=== PATIENT | male | born 1980 | race Caucasian/White ===

== ENCOUNTER 2017-07-31 17:47 | Emergency (ER) | payer OTHER ==
[2017-07-31 18:13] VITALS: BP 154/94
--- NOTE | 2017-07-31 19:25 | EDM.PDOC ---
ED HPI GENERAL MEDICAL PROBLEM - General Chief Complaint: Lower Extremity Injury/Pain Stated Complaint: HURT KNEE AT WORK Time Seen by Provider: 07/31/17 18:13 Source of Information: Reports: Patient History Limitations: Reports: No Limitations - History of Present Illness INITIAL COMMENTS - FREE TEXT/NARRATIVE: Patient is a 37 y/o male who presents to the E.D. complaining of right anterior knee pain. States today while at work was getting into his work vehicle. Upon doing so slipped causing him to hit the anterior aspect of his knee against the running board/step. States ever since hitting his knee he has had increasing pain with weight bearing and ambulation. States the pain has progressively getting worse with flexing/extending the knee. Has no prior history of injury to the affected knee or surgeries. Denies any sensory/motor deficits distally. Has taken 2 Aleve prior to admission to the ED. Otherwise has no additional complaints. Treatments SMUDGER: Reports: Other (see below) Other Treatments SMUDGER: alleve Right Knee Pain Score (Numeric/FACES): 10 - Related Data Allergies Allergy/AdvReac Type Severity Reaction Status Date / Time latex Allergy Hives Verified 06/21/15 22:55 Jobmpsf-Sev-Jxv Reductase Allergy Hives Verified 06/21/15 22:55 Inhibitor Home Meds: Home Meds Albuterol [Ventolin HFA] 2 puff INH Q4H PRN 06/21/15 [History] ClonazePAM [KlonoPIN] 2 mg PO BEDTIME 06/21/15 [History] Esomeprazole Magnesium [Nexium] 20 mg PO DAILY 06/21/15 [History] [place]-3/DHA/Epa/Fish Oil [Fish Oil] 2,400 mg PO DAILY 06/21/15 [History] [place]'s Wort 300 mg PO DAILY 06/21/15 [History] Past Medical History Respiratory History: Reports: Asthma Musculoskeletal History: Reports: Back Pain, Chronic Psychiatric History: Reports: Anxiety - Past Surgical History Other HEENT Surgeries/Procedures: uvula removed Social & Family History - Tobacco Use Smoking Status *Q: Never Smoker Years of Tobacco use: 20 Packs/Tins Daily: 0.5 - Caffeine Use Caffeine Use: Reports: Energy Drinks - Recreational Drug Use Recreational Drug Use: No Review of Systems - Review of Systems Review Of Systems: ROS reveals no pertinent complaints other than HPI. ED EXAM, GENERAL - Physical Exam Exam: See Below Exam Limited By: No Limitations General Appearance: Alert, WD/WN, No Apparent Distress Ears: Hearing Grossly Normal Nose: Normal Inspection Throat/Mouth: Normal Voice, No Airway Compromise Neck: Normal Inspection, Supple Respiratory/Chest: No Respiratory Distress, No Accessory Muscle Use Cardiovascular: Normal Peripheral Pulses, Regular Rate, Rhythm Peripheral Pulses: 2+: Radial (R) Extremities: Normal Inspection, No Pedal Edema, Normal Capillary Refill, Other ( Tenderness noted to the anterior aspect of the right knee. No ecchymosis, bony antibiotics, swelling present. Limited examination due to increasing pain with manipulation. Decreased active and passive range of motion secondary to anterior knee pain. No sensory deficits distally.) Neurological: Alert, Oriented, Normal Cognition, No Motor/Sensory Deficits Psychiatric: Normal Affect, Normal Mood Skin Exam: Warm, Dry, Intact, Normal Color Course - Vital Signs Last Recorded V/S: Last Vital Signs Temp 98.2 F 07/31/17 18:10 Pulse 96 07/31/17 18:10 Resp 20 07/31/17 18:10 BP 154/94 H 07/31/17 18:10 Pulse Ox 98 07/31/17 18:10 - Orders/Labs/Meds Orders: Active Orders 24 hr Category Date Time Status Knee Min 4V Rt [CR] Stat Exams 07/31/17 18:20 Taken - Re-Assessments/Exams Free Text/Narrative Re-Assessment/Exam: Ordered x-ray of the right knee. This did not reveal any acute bony abnormalities. Testing of the knee is limited 2nd to pain. Ordered helene wrap and crutches to be discharged with patient home. Patient is able to flex and extend his knee with limited range of motion. Instructions provided as documented. Departure - Departure Time of Disposition: 19:25 Disposition: Home, Self-Care 01 Condition: Good Clinical Impression: Contusion of knee, right Qualifiers: Encounter type: initial encounter Qualified Code(s): S80.01XA - Contusion of right knee, initial encounter Strain of knee and leg, right Qualifiers: Encounter type: initial encounter Qualified Code(s): S86.911A - Strain of unspecified muscle(s) and tendon(s) at lower leg level, right leg, initial encounter - Discharge Information Instructions: Crutch Use, Tyux-pc-Nvxy, Cast or Splint Care, Wemb-es-Oymo, Knee Sprain, Feig-ts-Wbjy Referrals: Miranda Redd, [Primary Care Provider] - Forms: ED Department Discharge, ED Return to Work/School Form Additional Instructions: As discussed x-ray of the right knee did not reveal any acute bony abnormalities. Examination was limited secondary to pain. Will have you use a helene wrap with crutches to ambulate. You're to be nonweightbearing for the next 5 to 7 days. Advance weight as tolerated. If not drastically improved see a orthopedic surgeon. Apply ice to the affected knee 4-6 times daily, 20 months in duration, do not apply ice directly on the skin. Elevate when able to reduce swelling and pain. Take Tylenol and ibuprofen in alternating fashion for discomfort. Return to ED for any new or worsening symptoms. - My Orders Last 24 Hours: My Active Orders 07/31/17 18:20 Knee Min 4V Rt [CR] Stat - Assessment/Plan Last 24 Hours: My Active Orders 07/31/17 18:20 Knee Min 4V Rt [CR] Stat
--- NOTE | 2017-08-01 07:16 | CR ---
Right knee: Four views of the right knee were obtained. Comparison: No prior knee exam. Medial and lateral joint spaces are maintained in height. No joint effusion is seen. No fracture or other bony abnormality is identified. Impression: 1. No abnormality is seen on right knee exam. Diagnostic code #1
== END 2017-07-31 19:49 | disposition home or self-care (01) ==
LOC: JD.ED 17:47
DX: S86.911A Strain of unspecified muscle(s) and tendon(s) at lower leg level, right leg, initial encounter (principal); S80.01XA Contusion of right knee, initial encounter; J45.909 Unspecified asthma, uncomplicated; Z91.040 Latex allergy status; Z79.899 Other long term (current) drug therapy; W22.8XXA Striking against or struck by other objects, initial encounter
CPT/HCPCS: 73564-26-RT; 73564-RT; 99283

== ENCOUNTER 2018-06-27 07:08 | Emergency (ER) | payer BC, OTHER ==
[2018-06-27] MEDS ORDERED: EPINEPHrine 1 MG/ML SDV IM ONE (07:45)
[2018-06-27] MEDS ORDERED: Loratadine 10 MG Tab PO ONE (07:45)
[2018-06-27] MEDS ORDERED: predniSONE 20 MG Tab PO ONE (07:45)
--- NOTE | 2018-06-27 08:00 | EDM.PDOC ---
ED HPI GENERAL MEDICAL PROBLEM - General Chief Complaint: Allergic Reaction Stated Complaint: ALLERGIC RX Time Seen by Provider: 06/27/18 07:21 Source of Information: Reports: Patient, RN Notes Reviewed - History of Present Illness INITIAL COMMENTS - FREE TEXT/NARRATIVE: Patient awakened with hives primarily arms, upper legs with swelling around the mouth and also around his eyes. He did eat crab last evening which should be the only thing out of the ordinary. He has had crab and other seafood in the past with no difficulty. He has no shortness of breath cough or wheezing. He states he is allergic to strawberries and various meds. no new Medications at this time. No recent antibiotics. - Related Data Allergies Allergy/AdvReac Type Severity Reaction Status Date / Time latex Allergy Hives Verified 06/21/15 22:55 Mbbieou-Ldv-Sck Reductase Allergy Hives Verified 06/21/15 22:55 Inhibitor strawberry Allergy Hives Verified 06/27/18 07:14 milk chocolate Allergy Diarrhea Uncoded 06/27/18 07:14 Home Meds: Home Meds Albuterol [Ventolin HFA] 2 puff INH Q4H PRN 06/21/15 [History] Esomeprazole Magnesium [Nexium] 40 mg PO DAILY 06/21/15 [History] [place]-3/DHA/Epa/Fish Oil [Fish Oil] 4,200 mg PO DAILY 06/21/15 [History] [place]'s Wort 300 mg PO DAILY 06/21/15 [History] Past Medical History HEENT History: Reports: Impaired Vision Other HEENT History: wears eyeglasses Cardiovascular History: Reports: High Cholesterol Respiratory History: Reports: Asthma, Bronchitis, Recurrent Gastrointestinal History: Reports: GERD Musculoskeletal History: Reports: Back Pain, Chronic, Fracture Neurological History: Reports: Migraines Psychiatric History: Reports: Anxiety Endocrine/Metabolic History: Reports: Other (See Below) Other Endocrine/Metabolic History: states is currently "borderline diabetic right now." Dermatologic History: Reports: Other (See Below) Other Dermatologic History: skin fungus, uses Selsin blue - Infectious Disease History Infectious Disease History: Reports: Chicken Pox - Past Surgical History HEENT Surgical History: Reports: Tonsillectomy Other HEENT Surgeries/Procedures: uvula removed Social & Family History - Tobacco Use Smoking Status *Q: Never Smoker - Caffeine Use Caffeine Use: Reports: None - Recreational Drug Use Recreational Drug Use: Yes Drug Use in Last 12 Months: Yes Recreational Drug Type: Reports: Marijuana/Hashish ED ROS ALLERGIC REACTION - Review of Systems Review Of Systems: See Below Constitutional: Denies: Fever, Chills, Diaphoresis HEENT: Denies: Throat Pain, Throat Swelling Respiratory: Denies: Shortness of Breath, Wheezing, Cough Cardiovascular: Denies: Chest Pain GI/Abdominal: Denies: Abdominal Pain, Nausea, Vomiting Musculoskeletal: Reports: No Symptoms Skin: Reports: Rash (Hives primarily hands arms and legs as well as neck upper chest.), Erythema (Mild erythema around his eyes) Neurological: Reports: No Symptoms ED EXAM GENERAL NO PERIP PULSE - Physical Exam Exam: See Below General Appearance: Alert, No Apparent Distress Eye Exam: Bilateral Eye: PERRL Ears: Normal External Exam Nose: Normal Inspection Throat/Mouth: Normal Inspection, No Airway Compromise Head: Facial Swelling (This for mild swelling around the mouth and also periorbital) Neck: Supple, Full Range of Motion Respiratory/Chest: No Respiratory Distress, Lungs Clear. No: Rhonchi, Wheezing , Stridor Cardiovascular: Regular Rate, Rhythm Back Exam: Normal Inspection Neurological: Alert, Oriented, No Motor/Sensory Deficits Skin Exam: Warm, Dry, Rash (He does have scattered highs primarily of his upper arms but also neck upper chest) Course - Vital Signs Text/Narrative:: 50 mg orally at home prior to arrival. Doing better the swelling has decreased. He still has some hives but they have faded. He does feel up to going home. Discharge instructions as documented. Last Recorded V/S: Last Vital Signs Temp 97.3 F 06/27/18 07:11 Pulse 90 06/27/18 07:11 Resp 18 06/27/18 07:11 BP 144/89 H 06/27/18 07:11 Pulse Ox 93 L 06/27/18 07:11 - Orders/Labs/Meds Meds: Medications Discontinued Medications Generic Name Dose Route Start Last Admin Trade Name Demian PRN Reason Stop Dose Admin Epinephrine HCl 0.3 mg 06/27/18 07:45 06/27/18 07:57 Adrenalin IM 06/27/18 07:46 0.3 mg ONETIME ONE Administration Loratadine 10 mg 06/27/18 07:45 06/27/18 07:57 Claritin PO 06/27/18 07:46 10 mg ONETIME ONE Administration Prednisone 80 mg 06/27/18 07:45 06/27/18 07:56 Prednisone PO 06/27/18 07:46 80 mg ONETIME ONE Administration Departure - Departure Time of Disposition: 08:19 Disposition: Home, Self-Care 01 Condition: Fair Clinical Impression: Allergic reaction Qualifiers: Encounter type: initial encounter Qualified Code(s): T78.40XA - Allergy, unspecified, initial encounter - Discharge Information Referrals: Ami Judge PA-C [Primary Care Provider] - Forms: ED Department Discharge Additional Instructions: You've been given an epinephrine shot, Claritin 10 mg, prednisone 80 mg orally while here in the ED. Continue Claritin 10 mg daily for the next 4 days or until after symptoms completely resolved, you may take Benadryl in addition if needed for severe rash facial swelling or itchiness. Continue prednisone 80 mg for the next 2 mornings and then 40 mg for the subsequent 2 mornings. Follow-up clinic as needed if symptoms not resolving as expected, return to ED as needed if symptoms worsening in any way.
[2018-06-27 08:39] VITALS: BP 139/97
== END 2018-06-27 08:30 | disposition home or self-care (01) ==
LOC: JD.ED 07:08
DX: L50.0 Allergic urticaria (principal); E78.00 Pure hypercholesterolemia, unspecified; F41.9 Anxiety disorder, unspecified; K21.9 Gastro-esophageal reflux disease without esophagitis; Z79.899 Other long term (current) drug therapy; Z91.040 Latex allergy status; Z91.018 Allergy to other foods; Z91.011 Allergy to milk products; Z88.8 Allergy status to other drugs, medicaments and biological substances
CPT/HCPCS: 96372; 99283; A9270; J0171

== ENCOUNTER → 2019-10-09 | Day surgery (SDC) | payer SELFPAY ==
[~2019-10-09] MED LIST: Bacitracin Oint 15 GM Tube ONE; Lactated Ringers 1,000 ML IV SCH; Lidocaine 1% 30 ML SDV ONE; Lidocaine 1% 4 ML ONE; Lidocaine 1%/Sod Bicarbonate in NS 8.4% 1 ML Syringe IDERM PRN; Propofol 200 MG/20 ML SDV ONE; Sodium Chloride 0.9% 10 ML Syringe FLUSH PRN; fentaNYL 100 MCG/2 ML SDV ONE
--- NOTE | 2019-10-09 12:56 | PCM.PREANE ---
Preanesthetic Assessment - Anesthesia/Transfusion/Family Hx Anesthesia History: Prior Anesthesia Without Reaction Transfusion History: No Prior Transfusion(s) Intubation History: Unknown - Review of Systems General: No Symptoms Pulmonary: No Symptoms Cardiovascular: No Symptoms Gastrointestinal: No Symptoms Neurological: No Symptoms Other: Reports: None - Physical Assessment NPO Status Date: 10/08/19 NPO Status Time: 21:00 Vital Signs: 128/70, 81, 16, 98% 97.8 F Height: 1.83 m Weight: 153 kg ASA Class: 2 Mental Status: Alert & Oriented x3 Airway Class: Mallampati = 3 Dentition: Reports: Missing Tooth/Teeth, Caries Thyro-Mental Finger Breadths: 3 (Full gonzalez) Mouth Opening Finger Breadths: 3 ROM/Head Extension: Full Lungs: Clear to Auscultation, Normal Respiratory Effort Cardiovascular: Regular Rate, Regular Rhythm - Allergies Allergies/Adverse Reactions: Allergies Allergy/AdvReac Type Severity Reaction Status Date / Time latex Allergy Hives Verified 06/27/18 08:52 shellfish derived Allergy Anaphylactic Verified 06/08/19 00:54 Shock Nqwlokh-Rah-Cok Reductase Allergy Hives Verified 06/27/18 08:52 Inhibitor strawberry Allergy Hives Verified 06/27/18 08:52 milk chocolate Allergy Diarrhea Uncoded 06/27/18 08:52 - Acknowledgements Anesthesia Type Planned: MAC Pt an Appropriate Candidate for the Planned Anesthesia: Yes Alternatives and Risks of Anesthesia Discussed w Pt/Guardian: Yes Pt/Guardian Understands and Agrees with Anesthesia Plan: Yes PreAnesthesia Questionnaire HEENT History: Reports: Impaired Vision Other HEENT History: wears eyeglasses Cardiovascular History: Reports: High Cholesterol Respiratory History: Reports: Asthma, Bronchitis, Recurrent Gastrointestinal History: Reports: GERD Musculoskeletal History: Reports: Back Pain, Chronic, Fracture Neurological History: Reports: Migraines Psychiatric History: Reports: Anxiety Endocrine/Metabolic History: Reports: Other (See Below) Other Endocrine/Metabolic History: states is currently "borderline diabetic right now." Dermatologic History: Reports: Other (See Below) Other Dermatologic History: skin fungus, uses Selsin blue - Infectious Disease History Infectious Disease History: Reports: Chicken Pox - Past Surgical History HEENT Surgical History: Reports: Tonsillectomy Other HEENT Surgeries/Procedures: uvula removed - HOME MEDS Home Medications: Home Meds Albuterol [Ventolin HFA] 2 puff INH Q4H PRN 06/21/15 [History] Esomeprazole Magnesium [Nexium] 40 mg PO DAILY 06/21/15 [History] [place]-3/DHA/Epa/Fish Oil [Fish Oil] 4,200 mg PO DAILY 06/21/15 [History] metFORMIN HCl [Metformin HCl ER] 500 mg PO QID 06/27/18 [History] Loratadine 10 mg PO DAILY 06/07/19 [History] - CURRENT (IN HOUSE) MEDS Current Meds: Current Medications Lactated Ringer's (Ringers, Lactated) 1,000 mls @ 125 mls/hr IV ASDIRECTED FABIAN Stop: 10/09/19 23:00 Lidocaine/Sodium Bicarbonate (Buffered Lidocaine 1% In Ns 8.4%) 0.25 ml IDERM ONETIME PRN PRN Reason: Prior to IV Start Stop: 10/09/19 18:00 Sodium Chloride (Saline Flush) 10 ml FLUSH ASDIRECTED PRN PRN Reason: Keep Vein Open Stop: 10/09/19 18:00
--- NOTE | 2019-10-09 13:51 | PCM.OPNOTE ---
- General Post-Op/Procedure Note Date of Surgery/Procedure: 10/09/19 Operative Procedure(s): excision of lateral nail palte and matrix of the rt big toe Pre Op Diagnosis: anxiety and ingrown toe nail rt big toe Post-Op Diagnosis: Same Anesthesia Technique: MAC Primary Surgeon: Selwyn Pina EBL in mLs: 5 Complications: None Condition: Good
--- NOTE | 2019-10-09 13:54 | PCM48HPAN ---
Post Anesthesia Note - EVALUATION WITHIN 48HRS OF ANESTHETIC Vital Signs in Normal Range: Yes Patient Participated in Evaluation: Yes Respiratory Function Stable: Yes Airway Patent: Yes Cardiovascular Function Stable: Yes Hydration Status Stable: Yes Pain Control Satisfactory: Yes Nausea and Vomiting Control Satisfactory: Yes Mental Status Recovered: Yes Vital Signs: Last Vital Signs Temp 97.8 F 10/09/19 13:22 Pulse 83 10/09/19 13:22 Resp 18 10/09/19 13:22 BP 128/70 10/09/19 13:22 Pulse Ox 95 10/09/19 13:22 Postprocedure: 133/78, HR 89, SpO2 94% T 98.7 F, RR 18
[2019-10-09 14:36] VITALS: BP 131/80; PULSE 78
--- NOTE | 2019-10-11 09:15 | OR ---
DATE OF OPERATION: 10/09/2019 SURGEON: Selwyn Pina MD PREOPERATIVE DIAGNOSIS: Ingrown toenail, right big toe. POSTOPERATIVE DIAGNOSIS: Ingrown toenail, right big toe. OPERATION PERFORMED: Excision of the lateral nail plate on the right big toe with removal of a portion of matrix. ANESTHESIA: Done under local anesthetic and IV sedation. ESTIMATED BLOOD LOSS: About 3 mL. DESCRIPTION OF PROCEDURE: The patient was taken to the operating room, placed in a supine position, connected to monitoring equipment, and given IV sedation. The right foot and toes were prepped with Betadine and draped off in a sterile fashion. 1% xylocaine without epinephrine was infiltrated in the big toe at the surgical site and the lateral nail plate was then elevated and excised with the scissors. A small incision was made in the paronychia, and this opened up the matrix, and the matrix was then sharply excised. This was aided with the use of a Soumya as a tourniquet and the field was dried. This was then dressed with bacitracin ointment and 4x4s. Tourniquet was removed and pressure was held. Bleeding was scant. It was then redressed with a compressive dressing and elevated. The patient tolerated the procedure, instructed on wound care, and will be followed up in the clinic. RYLEY /[id number]
== END | disposition home or self-care (01) ==
LOC: JD.SDS 12:39
PROVIDERS: ATTEND Surgery
DX: L60.0 Ingrowing nail (principal); E11.9 Type 2 diabetes mellitus without complications; K21.9 Gastro-esophageal reflux disease without esophagitis; E78.5 Hyperlipidemia, unspecified; G43.909 Migraine, unspecified, not intractable, without status migrainosus; F17.290 Nicotine dependence, other tobacco product, uncomplicated; Z79.899 Other long term (current) drug therapy; Z79.84 Long term (current) use of oral hypoglycemic drugs; Z79.1 Long term (current) use of non-steroidal anti-inflammatories (NSAID); Z91.018 Allergy to other foods; Z91.040 Latex allergy status; Z91.013 Allergy to seafood; Z88.8 Allergy status to other drugs, medicaments and biological substances
CPT/HCPCS: 11750; 82962; A9270; J2001; J2704; J3010; J7120

== ENCOUNTER 2020-08-13 01:45 | Emergency (ER) | payer MEDICAID ==
[2020-08-13 02:00] VITALS: BP 121/88; PULSE 106
--- NOTE | 2020-08-13 02:15 | EDM.PDOC ---
ED HPI GENERAL MEDICAL PROBLEM - General Chief Complaint: Lower Extremity Injury/Pain Stated Complaint: INJURED TOE ON LEFT FOOT Time Seen by Provider: 08/13/20 02:05 - History of Present Illness INITIAL COMMENTS - FREE TEXT/NARRATIVE: 40-year-old male presents the emergency room with an injured toe on his left foot Over a week ago the patient stubbed his toe after this he developed significant redness and swelling around the lateral aspect of the toenail. The patient attempted to trim this back with some scissors but it continued to get worse over time. He has not noticed any drainage from the area. Patient does not h ave red streaking up his leg. And he is not had any fevers or chills. Left Toe-Ring Pain Score (Numeric/FACES): 5 - Related Data Allergies Allergy/AdvReac Type Severity Reaction Status Date / Time latex Allergy Hives Verified 08/13/20 02:00 shellfish derived Allergy Anaphylactic Verified 08/13/20 02:00 Shock Uwrbxql-Bls-Kho Reductase Allergy Hives Verified 08/13/20 02:00 Inhibitor strawberry Allergy Hives Verified 08/13/20 02:00 milk chocolate Allergy Diarrhea Uncoded 08/13/20 02:00 Home Meds: Home Meds Albuterol [Ventolin HFA] 2 puff INH Q4H PRN 06/21/15 [History] Esomeprazole Magnesium [Nexium] 40 mg PO DAILY 06/21/15 [History] metFORMIN HCl [Metformin HCl ER] 1,000 mg PO BID 06/27/18 [History] Loratadine 10 mg PO DAILY 06/07/19 [History] Acetaminophen [Tylenol] 650 mg PO Q4H PRN 10/09/19 [History] EPINEPHrine [Epipen] 1 dose IM ONETIME PRN 10/09/19 [History] Multivitamin [Daily Multiple Vitamin] 1 tab PO DAILY 10/09/19 [History] [place]-3S/DHA/Epa/Fish Oil [[place]-3 Fish Oil 1,000 mg Sfgl] 2 cap PO DAILY 10/09/19 [History] clonazePAM [Clonazepam] 1 mg PO QPM 10/09/19 [History] clonazePAM [Clonazepam] 2 mg PO QAM 10/09/19 [History] cephALEXin [Keflex] 500 mg PO QID #28 capsule 08/13/20 [Rx] Past Medical History HEENT History: Reports: Impaired Vision Other HEENT History: wears eyeglasses Cardiovascular History: Reports: High Cholesterol, Hypertension Respiratory History: Reports: Asthma, Bronchitis, Recurrent Gastrointestinal History: Reports: GERD Genitourinary History: Reports: None [employer] History: Reports: None Musculoskeletal History: Reports: Back Pain, Chronic, Fracture Neurological History: Reports: Migraines Psychiatric History: Reports: Anxiety Endocrine/Metabolic History: Reports: Diabetes, Type II Other Endocrine/Metabolic History: states is currently "borderline diabetic right now." Hematologic History: Reports: None Immunologic History: Reports: None Oncologic (Cancer) History: Reports: None Dermatologic History: Reports: Other (See Below) Other Dermatologic History: skin fungus, uses Selsin blue - Infectious Disease History Infectious Disease History: Reports: Chicken Pox - Past Surgical History Head Surgeries/Procedures: Reports: None HEENT Surgical History: Reports: Tonsillectomy Other HEENT Surgeries/Procedures: uvula removed Cardiovascular Surgical History: Reports: None Respiratory Surgical History: Reports: None Male Surgical History: Reports: None Endocrine Surgical History: Reports: None Neurological Surgical History: Reports: None Musculoskeletal Surgical History: Reports: None Oncologic Surgical History: Reports: None Social & Family History - Family History Family Medical History: Noncontributory - Tobacco Use Smoking Status *Q: Never Smoker - Caffeine Use Caffeine Use: Reports: None - Recreational Drug Use Recreational Drug Use: No Review of Systems - Review of Systems Review Of Systems: See Below Constitutional: Reports: No Symptoms Respiratory: Reports: No Symptoms Cardiovascular: Reports: No Symptoms GI/Abdominal: Reports: No Symptoms ED EXAM, GENERAL - Physical Exam Exam: See Below Exam Limited By: No Limitations General Appearance: Alert, No Apparent Distress Respiratory/Chest: No Respiratory Distress, Lungs Clear, Normal Breath Sounds Cardiovascular: Regular Rate, Rhythm, No Edema, No Murmur Extremities: Other (Examination of his left fourth toe shows significant swelling much worse on the fibular aspect of the toe. With a little bit of pressure exudative material is expressed out without too much difficulty. Using smooth forceps I was able to reach underneath the pocket that formed partially under the nail plate and in the nail groove to open this up. I showed the patient how to do this and he should do this before soaking it. Cultures of the exudative material were obtained) Course - Vital Signs Last Recorded V/S: Last Vital Signs Temp 37.0 C 08/13/20 01:57 Pulse 106 H 08/13/20 01:57 Resp 16 08/13/20 01:57 BP 121/88 08/13/20 01:57 Pulse Ox 98 08/13/20 01:57 - Orders/Labs/Meds Orders: Active Orders 24 hr Category Date Time Status Toes Fourth Digit Lt T3 [CR] Stat Exams 08/13/20 02:21 Taken Meds: Medications Discontinued Medications Generic Name Dose Route Start Last Admin Trade Name Demian PRN Reason Stop Dose Admin Cephalexin 500 mg 08/13/20 02:40 Keflex PO 08/13/20 02:41 ONETIME ONE - Re-Assessments/Exams Free Text/Narrative Re-Assessment/Exam: 08/13/20 02:45 Examination of the left fourth toe was negative for acute fracture dislocation he cannot exclude an old fracture however the patient does think he fractured t his toe many years ago. There is a lucent line that extends partially through the distal phalanx involving mostly the tuft. However virtual radiology did not comment on any acute fracture and their interpretation was normal. He has some soft tissue swelling in the area. The patient tolerated me opening up the abscess site and draining what was in there. I have instructed the patient on how to keep this open and the importance of Epson salt soaking 4-6 times a day. He agrees to the treatment plan the patient will also be started on cephalexin. Departure - Departure Time of Disposition: 02:47 Disposition: Home, Self-Care 01 Clinical Impression: Pain in toe, Paronychia of fourth toe, left - Discharge Information Prescriptions: cephALEXin [Keflex] 500 mg PO QID #28 capsule Referrals: Ami Judge PA-C [Primary Care Provider] - Forms: ED Department Discharge Additional Instructions: Return to the emergency room with any questions problems or worsening symptoms. It is essential that you soak your foot in Epsom salts for 20 minutes 4-6 times a day for the next 7 days after 7 days soak it 3 times a day until it is completely better. You have been started on cephalexin, or Keflex, this is an antibiotic take 1 4 times a day until all gone. Follow-up with your regular healthcare provider on Monday or Monday for recheck. Sepsis Event Note (ED) - Evaluation Sepsis Screening Result: No Definite Risk - Focused Exam Vital Signs: Vital Signs Temp Pulse Resp BP Pulse Ox 08/13/20 01:57 37.0 C 106 H 16 121/88 98 - My Orders Last 24 Hours: My Active Orders 08/13/20 02:21 Toes Fourth Digit Lt T3 [CR] Stat - Assessment/Plan Last 24 Hours: My Active Orders 08/13/20 02:21 Toes Fourth Digit Lt T3 [CR] Stat
[2020-08-13] MEDS ORDERED: Cephalexin 500 MG Cap PO ONE (02:40)
== END 2020-08-13 02:58 | disposition home or self-care (01) ==
LOC: JD.ED 01:45
DX: L03.032 Cellulitis of left toe (principal); I10 Essential (primary) hypertension; K21.9 Gastro-esophageal reflux disease without esophagitis; J45.909 Unspecified asthma, uncomplicated; Z91.040 Latex allergy status; Z91.013 Allergy to seafood; Z91.011 Allergy to milk products; Z91.018 Allergy to other foods; Z79.899 Other long term (current) drug therapy
CPT/HCPCS: 73660; 87070; 87077; 87186; 99283; A9270

== ENCOUNTER 2020-08-15 23:53 | Emergency (ER) | payer MEDICAID ==
[2020-08-16 00:22] VITALS: BP 173/88; PULSE 114
--- NOTE | 2020-08-16 01:46 | EDM.PDOC ---
ED HPI GENERAL MEDICAL PROBLEM - General Chief Complaint: Respiratory Problem Stated Complaint: SOB PENDING COVID TEST Time Seen by Provider: 08/16/20 00:59 Source of Information: Reports: Patient History Limitations: Reports: No Limitations - History of Present Illness INITIAL COMMENTS - FREE TEXT/NARRATIVE: This is a 40-year-old male. He had a COVID test on Monday and he is awaiting for the results. He says about 5 days ago he had onset of cough shortness of breath pressure in his chest burning sensation when he breathes deep. When he tries to breathe deeper or tries to get up he starts having coughing fits. His fever in the ER was 100.2. He states that at home it was 102. Have a history of asthma and he is noted some periodic wheezing. He is not wheezing presently and his pulse ox on room air is running about 94-95% at rest. When he sits up it actually jumped up to 97% at room air. Though when he moves around he does start to cough. Chest Pain Score (Numeric/FACES): 3 - Related Data Allergies Allergy/AdvReac Type Severity Reaction Status Date / Time latex Allergy Hives Verified 08/16/20 00:22 shellfish derived Allergy Anaphylactic Verified 08/16/20 00:22 Shock [id number] Reductase Allergy Hives Verified 08/16/20 00:22 Inhibitor strawberry Allergy Hives Verified 08/16/20 00:22 milk chocolate Allergy Diarrhea Uncoded 08/16/20 00:22 Home Meds: Home Meds Albuterol [Ventolin HFA] 2 puff INH Q4H PRN 06/21/15 [History] Esomeprazole Magnesium [Nexium] 40 mg PO DAILY 06/21/15 [History] metFORMIN HCl [Metformin HCl ER] 1,000 mg PO BID 06/27/18 [History] Loratadine 10 mg PO DAILY 06/07/19 [History] Acetaminophen [Tylenol] 650 mg PO Q4H PRN 10/09/19 [History] EPINEPHrine [Epipen] 1 dose IM ONETIME PRN 10/09/19 [History] Multivitamin [Daily Multiple Vitamin] 1 tab PO DAILY 10/09/19 [History] [place]-3S/DHA/Epa/Fish Oil [[place]-3 Fish Oil 1,000 mg Sfgl] 2 cap PO DAILY 10/09/19 [History] clonazePAM [Clonazepam] 1 mg PO QPM 10/09/19 [History] clonazePAM [Clonazepam] 2 mg PO QAM 10/09/19 [History] cephALEXin [Keflex] 500 mg PO QID #28 capsule 08/13/20 [Rx] dexAMETHasone [Dexamethasone] 8 mg PO BID #6 tablet 08/16/20 [Rx] Past Medical History HEENT History: Reports: Impaired Vision Other HEENT History: wears eyeglasses Cardiovascular History: Reports: High Cholesterol, Hypertension Respiratory History: Reports: Asthma, Bronchitis, Recurrent Gastrointestinal History: Reports: GERD Genitourinary History: Reports: None PHYSICAL THERAPIST ASSISTANT History: Reports: None Musculoskeletal History: Reports: Back Pain, Chronic, Fracture Neurological History: Reports: Migraines Psychiatric History: Reports: Anxiety Endocrine/Metabolic History: Reports: Diabetes, Type II Other Endocrine/Metabolic History: states is currently "borderline diabetic right now." Hematologic History: Reports: None Immunologic History: Reports: None Oncologic (Cancer) History: Reports: None Dermatologic History: Reports: Other (See Below) Other Dermatologic History: skin fungus, uses Selsin blue - Infectious Disease History Infectious Disease History: Reports: Chicken Pox - Past Surgical History Head Surgeries/Procedures: Reports: None HEENT Surgical History: Reports: Tonsillectomy Other HEENT Surgeries/Procedures: uvula removed Cardiovascular Surgical History: Reports: None Respiratory Surgical History: Reports: None Male Surgical History: Reports: None Endocrine Surgical History: Reports: None Neurological Surgical History: Reports: None Oncologic Surgical History: Reports: None Social & Family History - Family History Family Medical History: Noncontributory - Tobacco Use Smoking Status *Q: Never Smoker - Caffeine Use Caffeine Use: Reports: None - Recreational Drug Use Recreational Drug Use: No ED ROS GENERAL - Review of Systems Review Of Systems: See Below Constitutional: Reports: Fever, Chills, Fatigue HEENT: Denies: Rhinitis, Sinus Problem, Throat Pain Respiratory: Reports: Shortness of Breath, Wheezing, Cough Cardiovascular: Reports: Other (Chest tightness and burning) Endocrine: Reports: No Symptoms GI/Abdominal: Denies: Abdominal Pain, Diarrhea, Nausea, Vomiting : Reports: No Symptoms Musculoskeletal: Reports: No Symptoms Skin: Reports: No Symptoms Neurological: Reports: No Symptoms Psychiatric: Reports: No Symptoms Hematologic/Lymphatic: Reports: No Symptoms ED EXAM, GENERAL - Physical Exam Exam: See Below Exam Limited By: No Limitations General Appearance: Alert, WD/WN, No Apparent Distress Eye Exam: Bilateral Eye: Normal Inspection Ears: Normal External Exam Nose: No: Nasal Drainage, Clear Rhinorrhea Throat/Mouth: Normal Voice, No Airway Compromise Head: Normocephalic Neck: Supple Respiratory/Chest: No Respiratory Distress, Lungs Clear, Normal Breath Sounds, Other (When he attempts to take a deep breath or when he tries to sit up or move around he starts coughing.). No: Rales, Rhonchi, Wheezing Cardiovascular: Regular Rate, Rhythm, No Murmur GI/Abdominal: Other (Enlarged abdomen but no complaints) Back Exam: Full Range of Motion Extremities: Normal Inspection, Normal Range of Motion Neurological: Alert, Oriented Psychiatric: Normal Affect, Normal Mood Skin Exam: Warm, Dry Course - Vital Signs Last Recorded V/S: Last Vital Signs Temp 100.2 F 08/16/20 00:17 Pulse 114 H 08/16/20 00:17 Resp 30 H 08/16/20 00:17 BP 173/88 H 08/16/20 00:17 Pulse Ox 95 08/16/20 02:11 - Orders/Labs/Meds Orders: Active Orders 24 hr Category Date Time Status RT Post Treatment Assessment [RC] Click to Edit Care 08/16/20 02:00 Active RT Pre-Treatment Assessment [RC] Click to Edit Care 08/16/20 02:00 Active Labs: Laboratory Tests 08/16/20 08/16/20 08/16/20 Range/Units 02:01 02:01 02:01 WBC 4.29 (4.23-9.07) K/mm3 RBC 5.14 (4.63-6.08) M/mm3 Hgb 14.8 (13.7-17.5) gm/dl Hct 45.3 (40.1-51.0) % MCV 88.1 (79.0-92.2) fl MCH 28.8 (25.7-32.2) pg MCHC 32.7 (32.2-35.5) g/dl RDW Std Deviation 42.9 (35.1-43.9) fL Plt Count 200 (163-337) K/mm3 MPV 9.9 (9.4-12.3) fl Neut % (Auto) 61.9 (34.0-67.9) % Lymph % (Auto) 24.7 (21.8-53.1) % [place] % (Auto) 12.8 H (5.3-12.2) % Eos % (Auto) 0.2 L (0.8-7.0) Baso % (Auto) 0.2 (0.1-1.2) % Neut # (Auto) 2.65 (1.78-5.38) K/mm3 Lymph # (Auto) 1.06 L (1.32-3.57) K/mm3 [place] # (Auto) 0.55 (0.30-0.82) K/mm3 Eos # (Auto) 0.01 L (0.04-0.54) K/mm3 Baso # (Auto) 0.01 (0.01-0.08) K/mm3 D-Dimer, Quantitative 0.25 (0.19-0.50) mg/L Sodium 139 (136-145) mEq/L Potassium 4.1 (3.5-5.1) mEq/L Chloride 103 (98-107) mEq/L Carbon Dioxide 28 (21-32) mEq/L Anion Gap 12.1 (5-15) BUN 12 (7-18) mg/dL Creatinine 1.3 (0.7-1.3) mg/dL Est Cr Clr Drug Dosing TNP Estimated GFR (MDRD) > 60 (>60) mL/min BUN/Creatinine Ratio 9.2 L (14-18) Glucose 108 H (74-106) mg/dL Calcium 8.4 L (8.5-10.1) mg/dL Ferritin (26-388) ng/ml Total Bilirubin 0.6 (0.2-1.0) mg/dL AST 56 H (15-37) U/L ALT 75 H (16-63) U/L Alkaline Phosphatase 73 (46-116) U/L Lactate Dehydrogenase 229 H (85-227) U/L Creatine Kinase 131 (39-308) U/L C-Reactive Protein 4.6 H* (<1.0) mg/dL Total Protein 7.8 (6.4-8.2) g/dl Albumin 3.5 (3.4-5.0) g/dl Globulin 4.3 gm/dL Albumin/Globulin Ratio 0.8 L (1-2) 08/16/20 Range/Units 02:01 WBC (4.23-9.07) K/mm3 RBC (4.63-6.08) M/mm3 Hgb (13.7-17.5) gm/dl Hct (40.1-51.0) % MCV (79.0-92.2) fl MCH (25.7-32.2) pg MCHC (32.2-35.5) g/dl RDW Std Deviation (35.1-43.9) fL Plt Count (163-337) K/mm3 MPV (9.4-12.3) fl Neut % (Auto) (34.0-67.9) % Lymph % (Auto) (21.8-53.1) % [place] % (Auto) (5.3-12.2) % Eos % (Auto) (0.8-7.0) Baso % (Auto) (0.1-1.2) % Neut # (Auto) (1.78-5.38) K/mm3 Lymph # (Auto) (1.32-3.57) K/mm3 [place] # (Auto) (0.30-0.82) K/mm3 Eos # (Auto) (0.04-0.54) K/mm3 Baso # (Auto) (0.01-0.08) K/mm3 D-Dimer, Quantitative (0.19-0.50) mg/L Sodium (136-145) mEq/L Potassium (3.5-5.1) mEq/L Chloride (98-107) mEq/L Carbon Dioxide (21-32) mEq/L Anion Gap (5-15) BUN (7-18) mg/dL Creatinine (0.7-1.3) mg/dL Est Cr Clr Drug Dosing Estimated GFR (MDRD) (>60) mL/min BUN/Creatinine Ratio (14-18) Glucose (74-106) mg/dL Calcium (8.5-10.1) mg/dL Ferritin 645 H (26-388) ng/ml Total Bilirubin (0.2-1.0) mg/dL AST (15-37) U/L ALT (16-63) U/L Alkaline Phosphatase (46-116) U/L Lactate Dehydrogenase (85-227) U/L Creatine Kinase (39-308) U/L C-Reactive Protein (<1.0) mg/dL Total Protein (6.4-8.2) g/dl Albumin (3.4-5.0) g/dl Globulin gm/dL Albumin/Globulin Ratio (1-2) Meds: Medications Discontinued Medications Generic Name Dose Route Start Last Admin Trade Name Demian PRN Reason Stop Dose Admin Albuterol 0 gm 08/16/20 01:59 08/16/20 02:10 Proventil Hfa INH 08/16/20 02:00 2 puff ONETIME ONE Administration - Re-Assessments/Exams Free Text/Narrative Re-Assessment/Exam: 08/16/20 03:47 Spoke to the patient regarding his test results. His d-dimer was negative at 0.25. He does have a mild elevation of his liver enzymes but his ferritin was 645 LDH of 229 CK 131 and C-reactive protein of 4.6. I believe that he is presumptively positive for COVID even though he does not have his test back. When I gave him the albuterol inhaler with a spacer it did seem to make a difference with his breathing. The patient is wanting to go home. I talked to him about all of this and I think that his test will end up being positive if it is negative I would suspect it is a false negative. Departure - Departure Time of Disposition: 03:48 Disposition: Home, Self-Care 01 Condition: Fair Clinical Impression: Clinical diagnosis of COVID-19, Mild asthma exacerbation - Discharge Information *PRESCRIPTION DRUG MONITORING PROGRAM REVIEWED*: Not Applicable *COPY OF PRESCRIPTION DRUG MONITORING REPORT IN PATIENT JOAQUIM: Not Applicable Prescriptions: dexAMETHasone [Dexamethasone] 8 mg PO BID #6 tablet Instructions: COVID-19 Frequently Asked Questions Referrals: Ami Judge PA-C [Primary Care Provider] - Forms: ED Department Discharge Additional Instructions: The lab results that we did today would suggest that you have a COVID-19 infection, very gentle activity at home, use the inhaler with a spacer to help with your breathing, take the dexamethasone to help with the inflammation and also your breathing, await for your COVID test if it is negative I would seriously doubt this based upon your lab results, follow-up with your doctor however make sure that you call them first to let them know you are COVID positive and see if they would be willing to see you, in the meantime isolate yourself in a quarantine fashion from everyone else for the next 10 to 14 days, return to the ER if your symptoms worsen Sepsis Event Note (ED) - Evaluation Sepsis Screening Result: No Definite Risk - Focused Exam Vital Signs: Vital Signs Temp Pulse Resp BP Pulse Ox Pulse Ox 08/16/20 02:11 95 08/16/20 00:17 100.2 F 114 H 30 H 173/88 H 97 - My Orders Last 24 Hours: My Active Orders 08/16/20 02:00 RT Post Treatment Assessment [RC] Click to Edit RT Pre-Treatment Assessment [RC] Click to Edit - Assessment/Plan Last 24 Hours: My Active Orders 08/16/20 02:00 RT Post Treatment Assessment [RC] Click to Edit RT Pre-Treatment Assessment [RC] Click to Edit
[2020-08-16] MEDS ORDERED: Albuterol 6.7 GM Inhaler INH ONE (01:59)
[2020-08-16] MEDS ORDERED: Dexamethasone 4 MG Tab PO ONE (03:50)
== END 2020-08-16 04:06 | disposition home or self-care (01) ==
LOC: JD.ED 23:53
DX: U07.1 COVID-19 (principal); J45.901 Unspecified asthma with (acute) exacerbation; I10 Essential (primary) hypertension; J45.909 Unspecified asthma, uncomplicated; K21.9 Gastro-esophageal reflux disease without esophagitis; E11.9 Type 2 diabetes mellitus without complications; F41.9 Anxiety disorder, unspecified; Z91.040 Latex allergy status; Z91.013 Allergy to seafood; Z88.8 Allergy status to other drugs, medicaments and biological substances; Z91.011 Allergy to milk products; Z91.018 Allergy to other foods; Z79.84 Long term (current) use of oral hypoglycemic drugs; Z79.899 Other long term (current) drug therapy
CPT/HCPCS: 36415; 80053; 82550; 82728; 83615; 85025; 85379; 86140; 94640; 99285; A9270; J8540; 99283

== ENCOUNTER 2020-08-19 21:34 | Inpatient (IN) | payer MEDICAID ==
--- NOTE | 2020-08-19 22:21 | EDM.PDOC ---
ED HPI GENERAL MEDICAL PROBLEM - General Chief Complaint: Respiratory Problem Stated Complaint: sob Time Seen by Provider: 08/19/20 21:45 Source of Information: Reports: Patient History Limitations: Reports: No Limitations - History of Present Illness INITIAL COMMENTS - FREE TEXT/NARRATIVE: Mr. Pemberton is a very pleasant 40-year-old gentleman who states that he developed a cough, dyspnea, a burning/pressure sensation in his chest with inspiration, and a fever on or about 08/11/2020. He was tested for the SARS-CoV-2 virus on 08/14/2020, which ultimately returned positive. Medical records indicate that he was seen in this ED on 08/16/2020 with the above symptoms. He was found to have an oxygen saturation of 95% on room air. His CRP was elevated at 4.6, and his ferritin 645, with the remainder of his work-up being unremarkable. He was prescribed dexamethasone 8 mg po BID x 3 days, however, he tells me that he only started the regimen this morning, with his second dose this evening. He has not taken any other medications to address his symptoms. The patient now presents the ED stating that his symptoms have worsened. He had a fever to 103 degrees on 08/17/2020. He has had 4 to 5 days of watery diarrhea, on and off. No nausea, vomiting, or urinary symptoms. He has had fatigue to the point that he has not been able to get off his couch, and a decreased appetite since last week. He was found to have an oxygen saturation of 81% on room air at home, wherefore his friends brought him to the ED by private vehicle. Here in the ED, the patient's initial BP was found to be elevated at 173/102, with a tachycardia of 104 bpm and tachypnea of 24 rpm, although subsequent vital signs were far more normal. He is afebrile, with an oxygen saturation of 70% on room air, 94% on 3 L of oxygen per nasal cannula. Prior to 08/11/2020, the patient denies having a recent fever, chills, sore throat, ear pain, nasal or sinus congestion, cough, dyspnea, chest pain, palpitations, nausea, vomiting, constipation, diarrhea, abdominal pain, urinary symptoms, recent weight gain or weight loss, recent bloody bowel movements or black bowel movements, recent joint aches, headaches, or rashes. The patient's PCP is RAEANN Dejesus. Chest Pain Score (Numeric/FACES): 7 - Related Data Allergies Allergy/AdvReac Type Severity Reaction Status Date / Time Kcvbkap-Det-Odg Reductase Allergy Severe Hives Verified 08/19/20 21:44 Inhibitor Bleach (Sodium Hypochlorite) Allergy Airway Verified 08/19/20 21:44 Tightness latex Allergy Hives Verified 08/19/20 21:44 shellfish derived Allergy Anaphylactic Verified 08/19/20 21:44 Shock strawberry Allergy Hives Verified 08/19/20 21:44 milk chocolate Allergy Diarrhea Uncoded 08/19/20 21:44 Home Meds: Home Meds Albuterol [Ventolin HFA] 2 puff INH Q4H PRN 06/21/15 [History] Esomeprazole Magnesium [Nexium] 40 mg PO DAILY 06/21/15 [History] metFORMIN HCl [Metformin HCl ER] 1,000 mg PO BID 06/27/18 [History] Loratadine 10 mg PO DAILY 06/07/19 [History] Acetaminophen [Tylenol] 650 mg PO Q4H PRN 10/09/19 [History] Multivitamin [Daily Multiple Vitamin] 1 tab PO DAILY 10/09/19 [History] [place]-3S/DHA/Epa/Fish Oil [[place]-3 Fish Oil 1,000 mg Sfgl] 2 cap PO DAILY 10/09/19 [History] clonazePAM [Clonazepam] 1 mg PO QPM 10/09/19 [History] clonazePAM [Clonazepam] 2 mg PO QAM 10/09/19 [History] dexAMETHasone [Dexamethasone] 8 mg PO BID #6 tablet 08/16/20 [Rx] Past Medical History HEENT History: Reports: Impaired Vision (wears glasses) Cardiovascular History: Reports: High Cholesterol (untreated) Respiratory History: Reports: Asthma (exercise-induced, PFT-proven) Gastrointestinal History: Reports: Gastritis, GERD Musculoskeletal History: Reports: Fracture (toes) Psychiatric History: Reports: Anxiety Endocrine/Metabolic History: Reports: Obesity/BMI 30+, Other (See Below) (Prediabetes) - Infectious Disease History Infectious Disease History: Reports: MRSA (08/13/2020), Novel Coronavirus (dx'd 08/14/2020) - Past Surgical History HEENT Surgical History: Reports: Oral Surgery (dental extractions), Tonsillectomy, Other (See Below) (Uvulectomy (for infection)) Male Surgical History: Reports: Vasectomy Social & Family History - Family History Family Medical History: Noncontributory - Tobacco Use Smoking Status *Q: Former Smoker Tobacco Use Within Last Twelve Months: Smokeless Tobacco (Chews 1 can/week) Years of Tobacco use: 13 Packs/Tins Daily: 1.5 Month/Year Tobacco Last Used: Quit 2001 - Caffeine Use Caffeine Use: Reports: Coffee - Alcohol Use Alcohol Use History: No - Recreational Drug Use Recreational Drug Use: Yes Drug Use in Last 12 Months: Yes Recreational Drug Type: Reports: Marijuana/Hashish (smokes on occasion - last Jun 2020) - Living Situation & Occupation Living situation: Reports: , Other (with friends) Occupation: Unemployed ED ROS GENERAL - Review of Systems Review Of Systems: Comprehensive ROS is negative, except as noted in HPI. ED EXAM, GENERAL - Physical Exam Exam: See Below Exam Limited By: No Limitations General Appearance: Alert, WD/WN, No Apparent Distress Eye Exam: Bilateral Eye: EOMI, Normal Inspection Ears: Normal External Exam, Hearing Grossly Normal Nose: Normal Inspection Throat/Mouth: Normal Voice, No Airway Compromise, Other (Wearing a KN95) Head: Atraumatic, Normocephalic Neck: Normal Inspection, Full Range of Motion Respiratory/Chest: No Respiratory Distress, Lungs Clear, Normal Breath Sounds, No Accessory Muscle Use, Other (Inspiration induces a non-productive sounding cough). No: Decreased Breath Sounds, Crackles, Rhonchi, Wheezing, Stridor, Prolonged Expiration Cardiovascular: Normal Peripheral Pulses, Regular Rate, Rhythm, No Gallop, No JVD, No Murmur, No Rub Peripheral Pulses: 3+: Radial (L), Radial (R) GI/Abdominal: Normal Bowel Sounds, Soft, Non-Tender, No Organomegaly, No Distention, No Abnormal Bruit, No Mass Back Exam: Normal Inspection, Full Range of Motion, NT Extremities: Normal Inspection, Normal Range of Motion, Normal Capillary Refill Neurological: Alert, Oriented, Normal Cognition, No Motor/Sensory Deficits Psychiatric: Normal Affect Skin Exam: Warm, Dry, Intact, Normal Color, No Rash EKG INTERPRETATION EKG Date: 08/19/20 Time: 21:50 Rhythm: NSR Rate (Beats/Min): 93 [place]: Normal P-Wave: Present QRS: Normal ST-T: Normal QT: Normal Comparison: Change From Previous EKG (PACs noted 06/21/2015, otherwise no significant changes) Course - Vital Signs Last Recorded V/S: Last Vital Signs Temp 36.1 C 08/19/20 21:39 Pulse 104 H 08/19/20 21:39 Resp 24 H 08/19/20 21:39 BP 173/102 H 08/19/20 21:39 Pulse Ox 70 L 08/19/20 21:39 - Orders/Labs/Meds Orders: Active Orders 24 hr Category Date Time Status Patient Status [ADT] Routine ADT 08/20/20 00:34 Active EKG Documentation Completion [RC] STAT Care 08/19/20 22:05 Active Chest 2V [CR] Stat Exams 08/19/20 22:05 Once CULTURE BLOOD [BC] Stat Lab 08/19/20 22:45 Received CULTURE BLOOD [BC] Stat Lab 08/19/20 22:52 Received PROCALCITONIN [REF] Stat Lab 08/19/20 21:48 Received Blood Culture x2 Reflex Set [OM.PC] Stat Oth 08/19/20 22:05 Ordered Isolation [COMM] Routine Oth 08/19/20 22:05 Ordered Labs: Laboratory Tests 08/19/20 08/19/20 08/19/20 Range/Units 21:48 21:48 21:48 WBC 4.27 (4.23-9.07) K/mm3 RBC 5.25 (4.63-6.08) M/mm3 Hgb 15.2 (13.7-17.5) gm/dl Hct 45.0 (40.1-51.0) % MCV 85.7 (79.0-92.2) fl MCH 29.0 (25.7-32.2) pg MCHC 33.8 (32.2-35.5) g/dl RDW Std Deviation 40.3 (35.1-43.9) fL Plt Count 260 (163-337) K/mm3 MPV 10.5 (9.4-12.3) fl Neutrophils % (Manual) 78 H (40-60) % Band Neutrophils % 1 (0-10) % Lymphocytes % (Manual) 17 L (20-40) % Atypical Lymphs % 0 % Monocytes % (Manual) 4 (2-10) % Eosinophils % (Manual) 0 L (0.8-7.0) % Basophils % (Manual) 0 L (0.2-1.2) Platelet Estimate Adequate Plt Morphology Comment Normal RBC Morph Comment Normal PT 11.6 (9.7-11.7) SECONDS INR 1.09 APTT 28 (22-31) SECONDS Fibrinogen 705 H (187-446) mg/dL D-Dimer, Quantitative 0.44 (0.19-0.50) mg/L Puncture Site ABG pH (7.35-7.45) ABG pCO2 (35.0-45.0) mmHg ABG pO2 (80.0-100.0) mmHg ABG HCO3 (22.0-26.0) meq/L ABG O2 Saturation (96.0-97.0) % ABG Base Excess (-2-2.0) Markell Test O2 Delivery Device Oxygen Flow Rate Sodium (136-145) mEq/L Potassium (3.5-5.1) mEq/L Chloride (98-107) mEq/L Carbon Dioxide (21-32) mEq/L Anion Gap (5-15) BUN (7-18) mg/dL Creatinine (0.7-1.3) mg/dL Est Cr Clr Drug Dosing mL/min Estimated GFR (MDRD) (>60) mL/min BUN/Creatinine Ratio (14-18) Glucose (74-106) mg/dL Lactic Acid (0.4-2.0) mmol/L Calcium (8.5-10.1) mg/dL Magnesium (1.8-2.4) mg/dl Total Bilirubin (0.2-1.0) mg/dL AST (15-37) U/L ALT (16-63) U/L Alkaline Phosphatase (46-116) U/L Creatine Kinase (39-308) U/L Troponin I (0.00-0.056) ng/mL C-Reactive Protein 12.0 H* (<1.0) mg/dL NT-Pro-B Natriuret Pep (0-125) pg/mL Total Protein (6.4-8.2) g/dl Albumin (3.4-5.0) g/dl Globulin gm/dL Albumin/Globulin Ratio (1-2) 08/19/20 08/19/2008/19/20 Range/Units 21:48 21:48 21:48 WBC (4.23-9.07) K/mm3 RBC (4.63-6.08) M/mm3 Hgb (13.7-17.5) gm/dl Hct (40.1-51.0) % MCV (79.0-92.2) fl MCH (25.7-32.2) pg MCHC (32.2-35.5) g/dl RDW Std Deviation (35.1-43.9) fL Plt Count (163-337) K/mm3 MPV (9.4-12.3) fl Neutrophils % (Manual) (40-60) % Band Neutrophils % (0-10) % Lymphocytes % (Manual) (20-40) % Atypical Lymphs % % Monocytes % (Manual) (2-10) % Eosinophils % (Manual) (0.8-7.0) % Basophils % (Manual) (0.2-1.2) Platelet Estimate Plt Morphology Comment RBC Morph Comment PT (9.7-11.7) SECONDS INR APTT (22-31) SECONDS Fibrinogen (187-446) mg/dL D-Dimer, Quantitative (0.19-0.50) mg/L Puncture Site ABG pH (7.35-7.45) ABG pCO2 (35.0-45.0) mmHg ABG pO2 (80.0-100.0) mmHg ABG HCO3 (22.0-26.0) meq/L ABG O2 Saturation (96.0-97.0) % ABG Base Excess (-2-2.0) Markell Test O2 Delivery Device Oxygen Flow Rate Sodium 141 (136-145) mEq/L Potassium 3.6 (3.5-5.1) mEq/L Chloride 103 (98-107) mEq/L Carbon Dioxide 24 (21-32) mEq/L Anion Gap 17.6 H (5-15) BUN 13 (7-18) mg/dL Creatinine 1.2 (0.7-1.3) mg/dL Est Cr Clr Drug Dosing 88.92 mL/min Estimated GFR (MDRD) > 60 (>60) mL/min BUN/Creatinine Ratio 10.8 L (14-18) Glucose 201 H (74-106) mg/dL Lactic Acid 1.5 (0.4-2.0) mmol/L Calcium 9.1 (8.5-10.1) mg/dL Magnesium 2.4 (1.8-2.4) mg/dl Total Bilirubin 0.8 (0.2-1.0) mg/dL AST 57 H (15-37) U/L ALT 52 (16-63) U/L Alkaline Phosphatase 62 (46-116) U/L Creatine Kinase 560 H (39-308) U/L Troponin I < 0.017 (0.00-0.056) ng/mL C-Reactive Protein (<1.0) mg/dL NT-Pro-B Natriuret Pep 24 (0-125) pg/mL Total Protein 8.5 H (6.4-8.2) g/dl Albumin 3.2 L (3.4-5.0) g/dl Globulin 5.3 gm/dL Albumin/Globulin Ratio 0.6 L (1-2) 08/19/20 Range/Units 22:19 WBC (4.23-9.07) K/mm3 RBC (4.63-6.08) M/mm3 Hgb (13.7-17.5) gm/dl Hct (40.1-51.0) % MCV (79.0-92.2) fl MCH (25.7-32.2) pg MCHC (32.2-35.5) g/dl RDW Std Deviation (35.1-43.9) fL Plt Count (163-337) K/mm3 MPV (9.4-12.3) fl Neutrophils % (Manual) (40-60) % Band Neutrophils % (0-10) % Lymphocytes % (Manual) (20-40) % Atypical Lymphs % % Monocytes % (Manual) (2-10) % Eosinophils % (Manual) (0.8-7.0) % Basophils % (Manual) (0.2-1.2) Platelet Estimate Plt Morphology Comment RBC Morph Comment PT (9.7-11.7) SECONDS INR APTT (22-31) SECONDS Fibrinogen (187-446) mg/dL D-Dimer, Quantitative (0.19-0.50) mg/L Puncture Site Rt radial ABG pH 7.41 (7.35-7.45) ABG pCO2 37.3 (35.0-45.0) mmHg ABG pO2 68.0 L (80.0-100.0) mmHg ABG HCO3 23.4 (22.0-26.0) meq/L ABG O2 Saturation 93.6 L (96.0-97.0) % ABG Base Excess -0.3 (-2-2.0) Markell Test Positive O2 Delivery Device Nasal cannula Oxygen Flow Rate 3.0 Sodium (136-145) mEq/L Potassium (3.5-5.1) mEq/L Chloride (98-107) mEq/L Carbon Dioxide (21-32) mEq/L Anion Gap (5-15) BUN (7-18) mg/dL Creatinine (0.7-1.3) mg/dL Est Cr Clr Drug Dosing mL/min Estimated GFR (MDRD) (>60) mL/min BUN/Creatinine Ratio (14-18) Glucose (74-106) mg/dL Lactic Acid (0.4-2.0) mmol/L Calcium (8.5-10.1) mg/dL Magnesium (1.8-2.4) mg/dl Total Bilirubin (0.2-1.0) mg/dL AST (15-37) U/L ALT (16-63) U/L Alkaline Phosphatase (46-116) U/L Creatine Kinase (39-308) U/L Troponin I (0.00-0.056) ng/mL C-Reactive Protein (<1.0) mg/dL NT-Pro-B Natriuret Pep (0-125) pg/mL Total Protein (6.4-8.2) g/dl Albumin (3.4-5.0) g/dl Globulin gm/dL Albumin/Globulin Ratio (1-2) Meds: Medications Discontinued Medications Generic Name Dose Route Start Last Admin Trade Name Freq PRN Reason Stop Dose Admin Remdesivir 200 mg/ Sodium 250 mls @ 250 mls/hr 08/19/20 22:13 Chloride IV 08/19/20 22:14 ONETIME ONE - Re-Assessments/Exams Free Text/Narrative Re-Assessment/Exam: 08/19/20 22:14 As above, the patient has been experiencing a cough productive of white mucus, progressively worsening dyspnea, a burning and pressure sensation in his chest with inspiration, fever, watery diarrhea, fatigue, and decreased appetite since 08/11/2020, in the setting of a positive test for the SARS-CoV-2 virus on 08/14/2020. His oxygen saturation is 70% on room air, 94% on 3 L of oxygen per nasal cannula. His physical exam, including that of his lungs, is unremarkable. Clearly, the patient is suffering significant effects from COVID-19, despite starting dexamethasone this morning. In order to coordinate our treatment, I discussed the patient's situation with Dr. Velasquez at 22:06, and have ordered labs accordingly. In addition, we will start the patient on remdesivir 200 mg. Convalescent plasma will be started after the patient is admitted. 08/19/20 23:36 Two-view chest radiograph reviewed. Poor inspiratory effort. The cardiac silhouette is at the upper limits of normal. No pulmonary vascular congestion. No pleural effusions. There are bilateral hazy infiltrates. No pneumothorax. Formal read per the Radiologist pending. 08/19/20 23:49 Notified by [facility] that the patient is refusing to receive remdesivir, citing that he read about it on [employer]. 08/20/20 00:19 The patient's CBC is remarkable for a WBC count normal at 4.27, but with 78% neutrophils and 17% leukocytes. His CMP is remarkable for a blood glucose modestly elevated at 201, an AST slightly elevated at 57, with an ALT normal at 52, and the remainder of his CMP being unremarkable. His magnesium level is within normal limits at 2.4. His lactic acid level is within normal limits at 1.5. His troponin is undetectably low. His proBNP is within normal limits at 24. His D-dimer is within normal limits at 0.44. His coags are within normal limits. His CRP is elevated at 12.0. His CPK is elevated at 560. His fibrinogen is elevated at 705. His ABG reflects a fully compensated chronic respiratory alkalosis. His influenza swab returned negative. The procalcitonin is a send-out test. 2 sets of blood cultures were obtained. 08/20/20 00:[address] Velasquez at 00:25. He accepted the patient for placement into observation on the medical floor. I will write bridge orders for supplemental oxygen. Dr. Velasquez will talk to the patient about convalescent plasma in the morning. 08/20/20 00:33 Two-view chest radiograph is read by Trevor as "Bilateral patchy peripheral parenchymal opacities suspicious for pneumonia. The appearance is consistent with COVID-19 pneumonia." Departure - Departure Time of Disposition: 00:28 Disposition: Refer to Observation Condition: Fair Clinical Impression: COVID-19 - Discharge Information *PRESCRIPTION DRUG MONITORING PROGRAM REVIEWED*: Not Applicable *COPY OF PRESCRIPTION DRUG MONITORING REPORT IN PATIENT JOAQUIM: Not Applicable Sepsis Event Note (ED) - Evaluation Sepsis Screening Result: Possible Sepsis Risk - Focused Exam Vital Signs: Vital Signs Temp Pulse Resp BP Pulse Ox 08/19/20 21:39 36.1 C 104 H 24 H 173/102 H 70 L - My Orders Last 24 Hours: My Active Orders 08/19/20 21:48 PROCALCITONIN [REF] Stat 08/19/20 22:05 EKG Documentation Completion [RC] STAT Chest 2V [CR] Stat Blood Culture x2 Reflex Set [OM.PC] Stat Isolation [COMM] Routine 08/19/20 22:45 CULTURE BLOOD [BC] Stat 08/19/20 22:52 CULTURE BLOOD [BC] Stat 08/20/20 00:34 Patient Status [ADT] Routine - Assessment/Plan Last 24 Hours: My Active Orders 08/19/20 21:48 PROCALCITONIN [REF] Stat 08/19/20 22:05 EKG Documentation Completion [RC] STAT Chest 2V [CR] Stat Blood Culture x2 Reflex Set [OM.PC] Stat Isolation [COMM] Routine 08/19/20 22:45 CULTURE BLOOD [BC] Stat 08/19/20 22:52 CULTURE BLOOD [BC] Stat 08/20/20 00:34 Patient Status [ADT] Routine
[2020-08-20] MEDS ORDERED: Acetaminophen 325 MG Tab PO PRN (09:20)
[2020-08-20] MEDS ORDERED: Albuterol 6.7 GM Inhaler INH PRN (09:30)
[2020-08-20] MEDS ORDERED: Sodium Chloride 0.9% 250 ML IV SCH (10:30)
[2020-08-20] MEDS: ClonazePAM 1 MG Tab PO SCH ×2 (10:46→17:46)
[2020-08-20] MEDS: Pantoprazole 40 MG Tab.CR PO SCH (10:47)
[2020-08-20] MEDS: Loratadine 10 MG Tab PO SCH (10:47)
[2020-08-20] MEDS: Enoxaparin 40 MG/0.4 ML Syringe SUBCUT SCH ×2 (10:48→21:21)
--- NOTE | 2020-08-20 11:22 | PCM.HP.2 ---
H&P History of Present Illness - General Date of Service: 08/20/20 Admit Problem/Dx: Admission Diagnosis/Problem Admission Diagnosis/Problem Hypoxia - History of Present Illness Initial Comments - Free Text/Narative: 40-year-old male tested positive for COVID-19 on 09-01 presents to the emergency department last night with cough, shortness of breath, pleuritic chest pain, and fever. Patient states it first started occurring at the end of last month. His girlfriend is a teacher and he got it from her. On 08/16/2020 he was seen in the emergency department with similar symptoms and was given dexamethasone 8 mg twice daily for 3 days. Patient just started it on the seventh, day of second visit to the emergency department, and took 8 mg in the morning and 8 mg in the evening. His symptoms have continued to worsen. He had a fever of 103 and 4 to 5 days of watery diarrhea. He denies any nausea, vomiting, or abdominal pain. Patient had a oxygen saturation yesterday of 81% and was brought to the emerge ncy department. In the emergency department his oxygen saturation was 70% and he was placed on 3 L nasal cannula. He does have a history of asthma, prediabetes, hyperlipidemia, obesity, and anxiety. EKG showed a sinus rhythm of 93 bpm. No significant abnormalities. In the emergency department it was recommended that the patient start remdesivir and the patient did not want to do so. He was concerned about side effects. Chest Pain Score (Numeric/FACES): 7 - Related Data Allergies/Adverse Reactions: Allergies Allergy/AdvReac Type Severity Reaction Status Date / Time Aqshsbc-Cyn-Rxe Reductase Allergy Intermediate Hives Verified 08/20/20 16:29 Inhibitor Bleach (Sodium Hypochlorite) Allergy Airway Verified 08/20/20 01:45 Tightness latex Allergy Hives Verified 08/20/20 01:45 shellfish derived Allergy Anaphylactic Verified 08/20/20 01:45 Shock strawberry Allergy Hives Verified 08/20/20 01:45 milk chocolate Allergy Diarrhea Uncoded 08/19/20 21:44 Home Medications: Home Meds Albuterol [Ventolin HFA] 2 puff INH Q4H PRN 06/21/15 [History] Esomeprazole Magnesium [Nexium] 40 mg PO DAILY 06/21/15 [History] metFORMIN HCl [Metformin HCl ER] 1,000 mg PO BID 06/27/18 [History] Loratadine 10 mg PO DAILY 06/07/19 [History] Multivitamin [Daily Multiple Vitamin] 1 tab PO DAILY 10/09/19 [History] [place]-3S/DHA/Epa/Fish Oil [[place]-3 Fish Oil 1,000 mg Sfgl] 2 cap PO DAILY 10/09/19 [History] clonazePAM [Clonazepam] 1 mg PO QPM 10/09/19 [History] clonazePAM [Clonazepam] 2 mg PO QAM 10/09/19 [History] dexAMETHasone [Dexamethasone] 8 mg PO BID #6 tablet 08/16/20 [Rx] Past Medical History HEENT History: Reports: Impaired Vision, Other (See Below) Other HEENT History: wears glasses Cardiovascular History: Reports: High Cholesterol Respiratory History: Reports: Asthma Gastrointestinal History: Reports: Gastritis, GERD Genitourinary History: Reports: None CRIPPLE CHASER History: Reports: None Musculoskeletal History: Reports: Fracture Neurological History: Reports: Migraines Psychiatric History: Reports: Anxiety Endocrine/Metabolic History: Reports: Obesity/BMI 30+ Other Endocrine/Metabolic History: states is currently "borderline diabetic ri ght now." Hematologic History: Reports: None Immunologic History: Reports: None Oncologic (Cancer) History: Reports: None Dermatologic History: Reports: Other (See Below) Other Dermatologic History: skin fungus (pt states MD said it was a fungus), uses Selsin blue-not helping - Infectious Disease History Infectious Disease History: Reports: Chicken Pox, Novel Coronavirus - Past Surgical History HEENT Surgical History: Reports: Oral Surgery, Tonsillectomy Male Surgical History: Reports: Vasectomy Social & Family History - Family History Family Medical History: Noncontributory - Tobacco Use Smoking Status *Q: Former Smoker Years of Tobacco use: 20 Packs/Tins Daily: 0.2 Used Tobacco, but Quit: No Month/Year Tobacco Last Used: Quit 2001 - Caffeine Use Caffeine Use: Reports: Coffee, Tea - Recreational Drug Use Recreational Drug Use: No Drug Use in Last 12 Months: Yes Recreational Drug Type: Reports: Marijuana/Hashish (smokes on occasion - last Jun 2020) - Living Situation & Occupation Living situation: Reports: , Other (with friends) Occupation: Unemployed H&P Review of Systems - Review of Systems: Review Of Systems: Comprehensive ROS is negative, except as noted in HPI. Exam - Exam Exam: See Below - Vital Signs Vital Signs: Last Vital Signs Temp 98.1 F 08/20/20 07:38 Pulse 86 08/20/20 07:38 Resp 16 08/20/20 07:38 BP 133/65 08/20/20 07:38 Pulse Ox 91 L 08/20/20 09:21 Weight: 140.568 kg - Exam Quality Assessment: Supplemental Oxygen General: Alert, Oriented, 4 HEENT: Conjunctiva Clear, EOMI, Hearing Intact, Mucosa Moist & [place], Normal Nasal Septum Neck: Supple, Trachea Midline, 2 Lungs: Normal Respiratory Effort, Decreased Breath Sounds. No: Wheezing Cardiovascular: Regular Rate, Regular Rhythm GI/Abdominal Exam: Normal Bowel Sounds, Soft, Non-Tender, No Organomegaly, No Distention (Obese) Back Exam: Normal Inspection Extremities: Normal Inspection, Normal Range of Motion, Non-Tender, No Pedal Edema, Normal Capillary Refill Peripheral Pulses: 1+: Posterior Tibial (L), Posterior Tibial (R), Dorsalis Pedis (L), Dorsalis Pedis (R) Skin: Warm, Dry, Intact Neuro Extensive - Mental Status: Alert, Oriented x3, Normal Mood/Affect, Normal Cognition, Memory Intact Neuro Extensive - Motor, Sensory, Reflexes: CN II-XII Intact Psychiatric: Alert, Normal Affect, Normal Mood - Patient Data Lab Results Last 24 hrs: Laboratory Results - last 24 hr 08/19/20 08/19/20 08/19/20 Range/Units 21:48 21:48 21:48 WBC 4.27 (4.23-9.07) K/mm3 RBC 5.25 (4.63-6.08) M/mm3 Hgb 15.2 (13.7-17.5) gm/dl Hct 45.0 (40.1-51.0) % MCV 85.7 (79.0-92.2) fl MCH 29.0 (25.7-32.2) pg MCHC 33.8 (32.2-35.5) g/dl RDW Std Deviation 40.3 (35.1-43.9) fL Plt Count 260 (163-337) K/mm3 MPV 10.5 (9.4-12.3) fl Neutrophils % (Manual) 78 H (40-60) % Band Neutrophils % 1 (0-10) % Lymphocytes % (Manual) 17 L (20-40) % Atypical Lymphs % 0 % Monocytes % (Manual) 4 (2-10) % Eosinophils % (Manual) 0 L (0.8-7.0) % Basophils % (Manual) 0 L (0.2-1.2) Platelet Estimate Adequate Plt Morphology Comment Normal RBC Morph Comment Normal PT 11.6 (9.7-11.7) SECONDS INR 1.09 APTT 28 (22-31) SECONDS Fibrinogen 705 H (187-446) mg/dL D-Dimer, Quantitative 0.44 (0.19-0.50) mg/L Puncture Site ABG pH (7.35-7.45) ABG pCO2 (35.0-45.0) mmHg ABG pO2 (80.0-100.0) mmHg ABG HCO3 (22.0-26.0) meq/L ABG O2 Saturation (96.0-97.0) % ABG Base Excess (-2-2.0) Markell Test O2 Delivery Device Oxygen Flow Rate Sodium (136-145) mEq/L Potassium (3.5-5.1) mEq/L Chloride (98-107) mEq/L Carbon Dioxide (21-32) mEq/L Anion Gap (5-15) BUN (7-18) mg/dL Creatinine (0.7-1.3) mg/dL Est Cr Clr Drug Dosing mL/min Estimated GFR (MDRD) (>60) mL/min BUN/Creatinine Ratio (14-18) Glucose (74-106) mg/dL Lactic Acid (0.4-2.0) mmol/L Calcium (8.5-10.1) mg/dL Magnesium (1.8-2.4) mg/dl Total Bilirubin (0.2-1.0) mg/dL AST (15-37) U/L ALT (16-63) U/L Alkaline Phosphatase (46-116) U/L Creatine Kinase (39-308) U/L Troponin I (0.00-0.056) ng/mL C-Reactive Protein 12.0 H* (<1.0) mg/dL NT-Pro-B Natriuret Pep (0-125) pg/mL Total Protein (6.4-8.2) g/dl Albumin (3.4-5.0) g/dl Globulin gm/dL Albumin/Globulin Ratio (1-2) Blood Type 08/19/20 08/19/20 08/19/20 Range/Units 21:48 21:48 21:48 WBC (4.23-9.07) K/mm3 RBC (4.63-6.08) M/mm3 Hgb (13.7-17.5) gm/dl Hct (40.1-51.0) % MCV (79.0-92.2) fl MCH (25.7-32.2) pg MCHC (32.2-35.5) g/dl RDW Std Deviation (35.1-43.9) fL Plt Count (163-337) K/mm3 MPV (9.4-12.3) fl Neutrophils % (Manual) (40-60) % Band Neutrophils % (0-10) % Lymphocytes % (Manual) (20-40) % Atypical Lymphs % % Monocytes % (Manual) (2-10) % Eosinophils % (Manual) (0.8-7.0) % Basophils % (Manual) (0.2-1.2) Platelet Estimate Plt Morphology Comment RBC Morph Comment PT (9.7-11.7) SECONDS INR APTT (22-31) SECONDS Fibrinogen (187-446) mg/dL D-Dimer, Quantitative (0.19-0.50) mg/L Puncture Site ABG pH (7.35-7.45) ABG pCO2 (35.0-45.0) mmHg ABG pO2 (80.0-100.0) mmHg ABG HCO3 (22.0-26.0) meq/L ABG O2 Saturation (96.0-97.0) % ABG Base Excess (-2-2.0) Markell Test O2 Delivery Device Oxygen Flow Rate Sodium 141 (136-145) mEq/L Potassium 3.6 (3.5-5.1) mEq/L Chloride 103 (98-107) mEq/L Carbon Dioxide 24 (21-32) mEq/L Anion Gap 17.6 H (5-15) BUN 13 (7-18) mg/dL Creatinine 1.2 (0.7-1.3) mg/dL Est Cr Clr Drug Dosing 88.92 mL/min Estimated GFR (MDRD) > 60 (>60) mL/min BUN/Creatinine Ratio 10.8 L (14-18) Glucose 201 H (74-106) mg/dL Lactic Acid 1.5 (0.4-2.0) mmol/L Calcium 9.1 (8.5-10.1) mg/dL Magnesium 2.4 (1.8-2.4) mg/dl Total Bilirubin 0.8 (0.2-1.0) mg/dL AST 57 H (15-37) U/L ALT 52 (16-63) U/L Alkaline Phosphatase 62 (46-116) U/L Creatine Kinase 560 H (39-308) U/L Troponin I < 0.017 (0.00-0.056) ng/mL C-Reactive Protein (<1.0) mg/dL NT-Pro-B Natriuret Pep 24 (0-125) pg/mL Total Protein 8.5 H (6.4-8.2) g/dl Albumin 3.2 L (3.4-5.0) g/dl Globulin 5.3 gm/dL Albumin/Globulin Ratio 0.6 L (1-2) Blood Type 08/19/20 08/19/20 Range/Units 22:19 22:45 WBC (4.23-9.07) K/mm3 RBC (4.63-6.08) M/mm3 Hgb (13.7-17.5) gm/dl Hct (40.1-51.0) % MCV (79.0-92.2) fl MCH (25.7-32.2) pg MCHC (32.2-35.5) g/dl RDW Std Deviation (35.1-43.9) fL Plt Count (163-337) K/mm3 MPV (9.4-12.3) fl Neutrophils % (Manual) (40-60) % Band Neutrophils % (0-10) % Lymphocytes % (Manual) (20-40) % Atypical Lymphs % % Monocytes % (Manual) (2-10) % Eosinophils % (Manual) (0.8-7.0) % Basophils % (Manual) (0.2-1.2) Platelet Estimate Plt Morphology Comment RBC Morph Comment PT (9.7-11.7) SECONDS INR APTT (22-31) SECONDS Fibrinogen (187-446) mg/dL D-Dimer, Quantitative (0.19-0.50) mg/L Puncture Site Rt radial ABG pH 7.41 (7.35-7.45) ABG pCO2 37.3 (35.0-45.0) mmHg ABG pO2 68.0 L (80.0-100.0) mmHg ABG HCO3 23.4 (22.0-26.0) meq/L ABG O2 Saturation 93.6 L (96.0-97.0) % ABG Base Excess -0.3 (-2-2.0) Markell Test Positive O2 Delivery Device Nasal cannula Oxygen Flow Rate 3.0 Sodium (136-145) mEq/L Potassium (3.5-5.1) mEq/L Chloride (98-107) mEq/L Carbon Dioxide (21-32) mEq/L Anion Gap (5-15) BUN (7-18) mg/dL Creatinine (0.7-1.3) mg/dL Est Cr Clr Drug Dosing mL/min Estimated GFR (MDRD) (>60) mL/min BUN/Creatinine Ratio (14-18) Glucose (74-106) mg/dL Lactic Acid (0.4-2.0) mmol/L Calcium (8.5-10.1) mg/dL Magnesium (1.8-2.4) mg/dl Total Bilirubin (0.2-1.0) mg/dL AST (15-37) U/L ALT (16-63) U/L Alkaline Phosphatase (46-116) U/L Creatine Kinase (39-308) U/L Troponin I (0.00-0.056) ng/mL C-Reactive Protein (<1.0) mg/dL NT-Pro-B Natriuret Pep (0-125) pg/mL Total Protein (6.4-8.2) g/dl Albumin (3.4-5.0) g/dl Globulin gm/dL Albumin/Globulin Ratio (1-2) Blood Type O POSITIVE Result Diagrams: 08/19/20 21:48 08/19/20 21:48 Rusty Results Last 24 hrs: Microbiology 08/19/20 23:24 Influenza Type A Antigen Screen - Final Nasopharyngeal Swab NEGATIVE INFLUENZA A VIRUS AG REFERENCE RANGE: NEGATIVE Influenza Type B Antigen Screen - Final NEGATIVE INFLUENZA B VIRUS AG REFERENCE RANGE: NEGATIVE Imaging Impressions Last 24 hrs: Chest x-ray showed bilateral patchy peripheral parenchymal opacities suspicious for pneumonia. This is consistent with COVID-19 pneumonia. Sepsis Event Note - Evaluation Sepsis Screening Result: No Definite Risk - Focused Exam Vital Signs: Vital Signs Temp Pulse Resp BP Pulse Ox Pulse Ox 08/20/20 09:21 91 L 08/20/20 09:20 91 L 08/20/20 07:38 98.1 F 86 16 133/65 91 L 08/20/20 05:30 82 92 L 08/20/20 01:27 98.8 F 87 32 H 137/75 91 L - Problem List (1) Pneumonia due to COVID-19 virus SNOMED Code(s): 192139867295702021 ICD Code: U07.1 - COVID-19; J12.89 - OTHER VIRAL PNEUMONIA Status: Acute Current Visit: Yes (2) COVID-19 SNOMED Code(s): 562291834 ICD Code: U07.1 - COVID-19 Status: Acute Current Visit: Yes (3) Exacerbation of asthma SNOMED Code(s): 887069512 ICD Code: J45.901 - UNSPECIFIED ASTHMA WITH (ACUTE) EXACERBATION Status: Acute Current Visit: No Problem List Initiated/Reviewed/Updated: Yes Orders Last 24hrs: Active Orders 24 hr Category Date Time Status Patient Status [ADT] Routine ADT 08/20/20 00:34 Active Bedrest Bathroom Privileges [RC] ASDIRECTED Care 08/20/20 01:46 Active Cardiac Monitoring [RC] CONTINUOUS Care 08/20/20 09:21 Active Communication Order [RC] DAILY Care 08/20/20 02:42 Active EKG Documentation Completion [RC] STAT Care 08/19/20 22:05 Active Oxygen Therapy [RC] PRN Care 08/20/20 09:20 Active Pulse Oximetry [RC] CONTINUOUS Care 08/20/20 09:21 Active Up With Assistance [RC] ASDIRECTED Care 08/20/20 09:20 Active VTE/DVT Education [RC] PER UNIT ROUTINE Care 08/20/20 09:20 Active Verify Patient Consent Obtain [RC] ASDIRECTED Care 08/20/20 09:20 Active Vital Signs [RC] Q4H Care 08/20/20 09:20 Active Consistent Carbohydrate Diet [DIET] Diet 08/20/20 Lunch Active Chest 2V [CR] Stat Exams 08/19/20 22:05 Once ABO/RH TYPE [BBK] Routine Lab 08/20/20 09:20 Results C-REACTIVE PROTEIN [CHEM] AM Lab 08/21/20 05:11 Ordered CBC WITH AUTO DIFF [HEME] AM Lab 08/21/20 05:11 Ordered CMP [COMPREHENSIVE METABOLIC PN,CMP] [CHEM] AM Lab 08/21/20 05:11 Ordered CULTURE BLOOD [BC] Stat Lab 08/19/20 22:45 Received CULTURE BLOOD [BC] Stat Lab 08/19/20 22:52 Received DD [D-DIMER QUANTITATIVE] [COAG] AM Lab 08/21/20 05:11 Ordered FRESH FROZEN PLASMA [BBK] Routine Lab 08/20/20 09:20 Results MAGNESIUM [CHEM] AM Lab 08/21/20 05:11 Ordered PATIENT RETYPE [BBK] Routine Lab 08/20/20 11:02 Ordered PHOSPHORUS [CHEM] AM Lab 08/21/20 05:11 Ordered PROCALCITONIN [REF] Stat Lab 08/19/20 21:48 Received Acetaminophen [TylenoL] Med 08/20/20 09:20 Active 650 mg PO Q4H PRN Albuterol [Proventil HFA] Med 08/20/20 09:30 Active 0 gm INH Q4H PRN ClonazePAM [KlonoPIN] Med 08/20/20 18:00 Active 1 mg PO QPM ClonazePAM [KlonoPIN] Med 08/20/20 10:00 Active 2 mg PO DAILY Enoxaparin [Lovenox] Med 08/20/20 09:30 Active 40 mg SUBCUT BID Fish Oil/[place]-3 Fatty Acids [Fish Oil] Med 08/21/20 09:00 Active 2 gm PO DAILY Loratadine [Claritin] Med 08/20/20 09:30 Active 10 mg PO DAILY Multivitamins,Therapeutic [Thera] Med 08/21/20 09:00 Active 1 each PO DAILY Pantoprazole [ProTONIX] Med 08/20/20 10:00 Active 40 mg PO DAILY Sodium Chloride 0.9% [Normal Saline] 250 ml Med 08/20/20 10:30 Active IV ASDIRECTED dexAMETHasone Med 08/21/20 21:00 Active 6 mg PO Q24H Blood Culture x2 Reflex Set [OM.PC] Stat Oth 08/19/20 22:05 Ordered Isolation [COMM] Routine Oth 08/19/20 22:05 Ordered Transfuse Fresh Frozen Plasma [COMM] Routine Oth 08/20/20 09:20 Ordered Resuscitation Status Routine Resus Stat 08/20/20 01:46 Ordered Medication Orders Acetaminophen (Tylenol) 650 mg PO Q4H PRN PRN Reason: Pain (Mild 1-3)/fever Albuterol (Proventil Hfa) 0 gm INH Q4H PRN PRN Reason: Wheezing Clonazepam (Klonopin) 1 mg PO QPM FABIAN Clonazepam (Klonopin) 2 mg PO DAILY [facility] Last Admin: 08/20/20 10:46 Dose: 2 mg Documented by: MELISSA Dexamethasone (Dexamethasone) 6 mg PO Q24H [facility] Stop: 08/30/20 21:01 Enoxaparin Sodium (Lovenox) 40 mg SUBCUT BID [facility] Last Admin: 08/20/20 10:48 Dose: 40 mg Documented by: MELISSA Fish Oil (Fish Oil) 2 gm PO DAILY [facility] Sodium Chloride (Normal Saline) 250 mls @ 100 mls/hr IV ASDIRECTED [facility] Loratadine (Claritin) 10 mg PO DAILY [facility] Last Admin: 08/20/20 10:47 Dose: 10 mg Documented by: MELISSA Multivitamins (Thera) 1 each PO DAILY [facility] Pantoprazole Sodium (Protonix) 40 mg PO DAILY [facility] Last Admin: 08/20/20 10:47 Dose: 40 mg Documented by: MELISSA Assessment/Plan Comment:: Severe COVID disease COVID-19 pneumonia * Patient was at an SPO2 of 70% on room air when he presented to the emergency department. * Chest x-ray consistent with viral pneumonia * Refused remdesivir in the emergency department * Was on dexamethasone 8 mg twice daily x1 day. This is a significantly higher dose then studied. * Last fever was 08/17/2020 * Pertinent lab results: WBC 4.2, fibrinogen 705, d-dimer is 0.44, CRP 12, lactic acid 1.5, troponin less than 0.017, creatinine kinase 560, proBNP 24, ABG: pH 7.41, PCO2 37.3, PO2 68, bicarb 23.4, O2 saturation 93.6% on 3 L nasal cannula. * Risk factors that increase risk for poor prognosis: Obesity, male age, prediabetes, asthma Prediabetes * Blood sugar 201, but patient did take 16 mg of dexamethasone today. * Unknown hemoglobin A1c * On metformin Asthma * Mild intermittent * Home meds only include albuterol inhaler as needed Anxiety * On clonazepam twice daily * No complaints of anxiety on admission * Continue to monitor closely because dexamethasone can worsen symptoms of anxiety. Plan * Admit to medical floor on telemetry and continuous pulse ox * I had a long discussion with him in regards to current treatments for COVID- 19. Patient said he will like to get treated with convalescent plasma and hold off on getting remdesivir at this time. He was given a fax sheet for emergency use authorization of COVID-19 convalescent plasma and treatment of COVID-19 in hospitalized patients. I counseled him on the risk for infectious disease, transfusion reactions, unusual reactions like worsening symptoms from his illness, and unknown responses. Patient voiced understanding, asked questions and I answered the meds appropriately like it. * Restart dexamethasone at 6 mg daily tomorrow evening, 08/21/2020. * Get CBC, CMP, mag, CRP, and d-dimer tomorrow morning. * Get hemoglobin A1c and vitamin D level. * Depending on his hemoglobin A1c level will start on alogliptin if it is elevated into diabetic range. * Start sliding scale insulin secondary to hypoglycemia caused by dexamethasone. * Albuterol 2 puffs every 4 hours as needed * Consider remdesivir tomorrow if not improving. VTE prophylaxis with Lovenox CODE STATUS: Full code Disposition admit to medical floor for COVID-19 treatment - Mortality Measure Prognosis:: Good
[2020-08-20] MEDS ORDERED: diphenhydrAMINE 50 MG/ML SDV ONE (16:28)
[2020-08-20] MEDS ORDERED: diphenhydrAMINE 50 MG/ML SDV IVPUSH ONE (16:30)
--- NOTE | 2020-08-20 17:18 | PCM.SN.2 ---
- Free Text/Narrative Note: Called by nursing secondary to patient developing a pruritic rash after his second unit of convalescent plasma. He states he does have some swelling feeling to his lips but denies any worsening shortness of breath or cough. He does state that his rash is pruritic and covers his upper torso down to his low back. Vital signs: Temperature 98.2, heart rate 87, blood pressure 123/69, respiratory rate 30, SPO2 94% on 3 L. Exam: General well-appearing male in no acute distress. HEENT oral mucosa is moist and pink. Not swollen. Lips look minimally swollen but not erythematous. Respiratory, increased respiratory rate without increased respiratory effort. Lungs are clear to auscultation bilaterally but decreased breath sounds. No wheezing. Heart regular rate and rhythm. Skin: Typical hives throughout his back and chest. They are raised, blanching, wheal and flare where they are not confluent. Assessment: Allergic transfusion reaction to convalescent plasma. Plan: Benadryl 50 mg IV. Maintain continuous pulse oximetry and reevaluate by nursing.
[2020-08-20] MEDS ORDERED: Hydrocortisone 1% Crm 30 GM Tube TOP PRN (17:51)
[2020-08-20] MEDS ORDERED: diphenhydrAMINE 50 MG Cap PO ONE (22:34)
[2020-08-20] MEDS ORDERED: Loratadine 10 MG Tab PO ONE (22:35)
[2020-08-20] MEDS ORDERED: Famotidine 20 MG Tab PO ONE (22:36)
[2020-08-20] MEDS: Dexamethasone 4 MG Tab PO SCH (22:53)
[2020-08-21] MEDS: Pantoprazole 40 MG Tab.CR PO SCH (08:46)
[2020-08-21] MEDS: ClonazePAM 1 MG Tab PO SCH ×2 (08:46→18:39)
[2020-08-21] MEDS: Loratadine 10 MG Tab PO SCH (08:46)
[2020-08-21] MEDS: Fish Oil/Omega-3 Fatty Acids 1 Gm Cap PO SCH (08:46)
[2020-08-21] MEDS: Multivitamins,Therapeutic Tab PO SCH (08:46)
[2020-08-21] MEDS: Enoxaparin 40 MG/0.4 ML Syringe SUBCUT SCH ×2 (08:46→22:45)
[2020-08-21 09:25] LABS: HEMOGLOBIN A1C 5.6 % (4.50-6.20)
--- NOTE | 2020-08-21 16:50 | PCM.PN ---
- General Info Date of Service: 08/21/20 Admission Dx/Problem (Free Text): Admission Diagnosis/Problem Admission Diagnosis/Problem Hypoxia Subjective Update: Patient had you to [place] reaction yesterday to the second bag of convalescent plasma. He received dexamethasone, Pepcid, Benadryl x2, and loratadine. He states this morning he has no rash or itching. Generally he is no better than previously. He continues on 3 L of O2 via nasal cannula. Appetite is good. Functional Status: Reports: Pain Controlled - Review of Systems General: Reports: No Symptoms HEENT: Reports: No Symptoms Pulmonary: Reports: Cough Cardiovascular: Reports: No Symptoms Gastrointestinal: Reports: No Symptoms Musculoskeletal: Reports: No Symptoms Psychiatric: Reports: No Symptoms - Patient Data Vitals - Most Recent: Last Vital Signs Temp 97.5 F 08/21/20 13:32 Pulse 71 08/21/20 13:32 Resp 22 H 08/21/20 13:32 BP 125/62 08/21/20 13:32 Pulse Ox 96 08/21/20 13:32 Weight - Most Recent: 140.16 kg I&O - Last 24 Hours: Intake & Output 08/21/20 08/21/20 08/21/20 06:59 14:59 22:59 Intake Total 500 Output Total 400 Balance 100 Lab Results Last 24 Hours: Laboratory Results - last 24 hr 08/19/20 08/20/20 08/21/20 Range/Units 21:48 17:15 05:10 WBC 7.21 (4.23-9.07) K/mm3 RBC 5.05 (4.63-6.08) M/mm3 Hgb 14.5 (13.7-17.5) gm/dl Hct 43.9 (40.1-51.0) % MCV 86.9 (79.0-92.2) fl MCH 28.7 (25.7-32.2) pg MCHC 33.0 (32.2-35.5) g/dl RDW Std Deviation 40.9 (35.1-43.9) fL Plt Count 306 (163-337) K/mm3 MPV 11.1 (9.4-12.3) fl Neut % (Auto) 79.3 H (34.0-67.9) % Lymph % (Auto) 11.4 L (21.8-53.1) % [place] % (Auto) 8.9 (5.3-12.2) % Eos % (Auto) 0 L (0.8-7.0) Baso % (Auto) 0.1 (0.1-1.2) % Neut # (Auto) 5.72 H (1.78-5.38) K/mm3 Lymph # (Auto) 0.82 L (1.32-3.57) K/mm3 [place] # (Auto) 0.64 (0.30-0.82) K/mm3 Eos # (Auto) 0.00 L (0.04-0.54) K/mm3 Baso # (Auto) 0.01 (0.01-0.08) K/mm3 Manual Slide Review Normal smear D-Dimer, Quantitative (0.19-0.50) mg/L Sodium (136-145) mEq/L Potassium (3.5-5.1) mEq/L Chloride (98-107) mEq/L Carbon Dioxide (21-32) mEq/L Anion Gap (5-15) BUN (7-18) mg/dL Creatinine (0.7-1.3) mg/dL Est Cr Clr Drug Dosing mL/min Estimated GFR (MDRD) (>60) mL/min BUN/Creatinine Ratio (14-18) Glucose (74-106) mg/dL POC Glucose (70-105) mg/dL Hemoglobin A1c (4.50-6.20) % Calcium (8.5-10.1) mg/dL Phosphorus (2.6-4.7) mg/dL Magnesium (1.8-2.4) mg/dl Total Bilirubin (0.2-1.0) mg/dL AST (15-37) U/L ALT (16-63) U/L Alkaline Phosphatase (46-116) U/L C-Reactive Protein (<1.0) mg/dL Total Protein (6.4-8.2) g/dl Albumin (3.4-5.0) g/dl Globulin gm/dL Albumin/Globulin Ratio (1-2) Procalcitonin 0.10 H (<0.10) ng/mL TSH 3rd Generation (0.358-3.74) uIU/mL Tx Rx Implicated Unit 1 [id number] Unit 1 Component Convalescent plasma Tx React Review Date 08/20/20 879 Reaction Clerical Check Acceptable Pre-Trans Vis Hemolysis Negative Pre-Trans Icterus Negative Post-Trans Blood Type O positive Post-Tx Visible Hemolys Negative Post-Trans Icterus Negative Post-Trans KAYLENE IgG Negative Post-Trans KAYLENE Poly Negative Reaction Interpretation Allergic reaction Reaction Pathol Review Dr. kathleen nunn 08/21/20 08/21/20 08/21/20 Range/Units 05:10 05:10 05:10 WBC (4.23-9.07) K/mm3 RBC (4.63-6.08) M/mm3 Hgb (13.7-17.5) gm/dl Hct (40.1-51.0) % MCV (79.0-92.2) fl MCH (25.7-32.2) pg MCHC (32.2-35.5) g/dl RDW Std Deviation (35.1-43.9) fL Plt Count (163-337) K/mm3 MPV (9.4-12.3) fl Neut % (Auto) (34.0-67.9) % Lymph % (Auto) (21.8-53.1) % [place] % (Auto) (5.3-12.2) % Eos % (Auto) (0.8-7.0) Baso % (Auto) (0.1-1.2) % Neut # (Auto) (1.78-5.38) K/mm3 Lymph # (Auto) (1.32-3.57) K/mm3 [place] # (Auto) (0.30-0.82) K/mm3 Eos # (Auto) (0.04-0.54) K/mm3 Baso # (Auto) (0.01-0.08) K/mm3 Manual Slide Review D-Dimer, Quantitative 0.95 H (0.19-0.50) mg/L Sodium 142 (136-145) mEq/L Potassium 3.8 (3.5-5.1) mEq/L Chloride 104 (98-107) mEq/L Carbon Dioxide 23 (21-32) mEq/L Anion Gap 18.8 H (5-15) BUN 21 H (7-18) mg/dL Creatinine 1.0 (0.7-1.3) mg/dL Est Cr Clr Drug Dosing 106.70 mL/min Estimated GFR (MDRD) > 60 (>60) mL/min BUN/Creatinine Ratio 21.0 H (14-18) Glucose 192 H (74-106) mg/dL POC Glucose (70-105) mg/dL Hemoglobin A1c 5.60 (4.50-6.20) % Calcium 9.4 (8.5-10.1) mg/dL Phosphorus 4.4 (2.6-4.7) mg/dL Magnesium 2.3 (1.8-2.4) mg/dl Total Bilirubin 0.6 (0.2-1.0) mg/dL AST 34 (15-37) U/L ALT 45 (16-63) U/L Alkaline Phosphatase 58 (46-116) U/L C-Reactive Protein 4.7 H* (<1.0) mg/dL Total Protein 7.7 (6.4-8.2) g/dl Albumin 3.0 L (3.4-5.0) g/dl Globulin 4.7 gm/dL Albumin/Globulin Ratio 0.6 L (1-2) Procalcitonin (<0.10) ng/mL TSH 3rd Generation 0.526 (0.358-3.74) uIU/mL Tx Rx Implicated Unit 1 Unit 1 Component Tx React Review Date Reaction Clerical Check Pre-Trans Vis Hemolysis Pre-Trans Icterus Post-Trans Blood Type Post-Tx Visible Hemolys Post-Trans Icterus Post-Trans KAYLENE IgG Post-Trans KAYLENE Poly Reaction Interpretation Reaction Pathol Review 08/21/20 08/21/20 Range/Units 08:58 12:46 WBC (4.23-9.07) K/mm3 RBC (4.63-6.08) M/mm3 Hgb (13.7-17.5) gm/dl Hct (40.1-51.0) % MCV (79.0-92.2) fl MCH (25.7-32.2) pg MCHC (32.2-35.5) g/dl RDW Std Deviation (35.1-43.9) fL Plt Count (163-337) K/mm3 MPV (9.4-12.3) fl Neut % (Auto) (34.0-67.9) % Lymph % (Auto) (21.8-53.1) % [place] % (Auto) (5.3-12.2) % Eos % (Auto) (0.8-7.0) Baso % (Auto) (0.1-1.2) % Neut # (Auto) (1.78-5.38) K/mm3 Lymph # (Auto) (1.32-3.57) K/mm3 [place] # (Auto) (0.30-0.82) K/mm3 Eos # (Auto) (0.04-0.54) K/mm3 Baso # (Auto) (0.01-0.08) K/mm3 Manual Slide Review D-Dimer, Quantitative (0.19-0.50) mg/L Sodium (136-145) mEq/L Potassium (3.5-5.1) mEq/L Chloride (98-107) mEq/L Carbon Dioxide (21-32) mEq/L Anion Gap (5-15) BUN (7-18) mg/dL Creatinine (0.7-1.3) mg/dL Est Cr Clr Drug Dosing mL/min Estimated GFR (MDRD) (>60) mL/min BUN/Creatinine Ratio (14-18) Glucose (74-106) mg/dL POC Glucose 172 H 102 (70-105) mg/dL Hemoglobin A1c (4.50-6.20) % Calcium (8.5-10.1) mg/dL Phosphorus (2.6-4.7) mg/dL Magnesium (1.8-2.4) mg/dl Total Bilirubin (0.2-1.0) mg/dL AST (15-37) U/L ALT (16-63) U/L Alkaline Phosphatase (46-116) U/L C-Reactive Protein (<1.0) mg/dL Total Protein (6.4-8.2) g/dl Albumin (3.4-5.0) g/dl Globulin gm/dL Albumin/Globulin Ratio (1-2) Procalcitonin (<0.10) ng/mL TSH 3rd Generation (0.358-3.74) uIU/mL Tx Rx Implicated Unit 1 Unit 1 Component Tx React Review Date Reaction Clerical Check Pre-Trans Vis Hemolysis Pre-Trans Icterus Post-Trans Blood Type Post-Tx Visible Hemolys Post-Trans Icterus Post-Trans KAYLENE IgG Post-Trans KAYLENE Poly Reaction Interpretation Reaction Pathol Review Rusty Results Last 24 Hours: Microbiology 08/19/20 22:52 Aerobic Blood Culture - Preliminary Blood - Venous - Lab Draw NO GROWTH AFTER 1 DAY Anaerobic Blood Culture - Preliminary NO GROWTH AFTER 1 DAY 08/19/20 22:45 Aerobic Blood Culture - Preliminary Blood - Venous NO GROWTH AFTER 1 DAY Anaerobic Blood Culture - Preliminary NO GROWTH AFTER 1 DAY Med Orders - Current: Current Medications Acetaminophen (Tylenol) 650 mg PO Q4H PRN PRN Reason: Pain (Mild 1-3)/fever Albuterol (Proventil Hfa) 0 gm INH Q4H PRN PRN Reason: Wheezing Clonazepam (Klonopin) 1 mg PO QPM [facility] Last Admin: 08/20/20 17:46 Dose: 1 mg Documented by: Clonazepam (Klonopin) 2 mg PO DAILY [facility] Last Admin: 08/21/20 08:46 Dose: 2 mg Documented by: Dexamethasone (Dexamethasone) 6 mg PO Q24H [facility] Stop: 08/29/20 23:01 Last Admin: 08/20/20 22:53 Dose: 6 mg Documented by: Enoxaparin Sodium (Lovenox) 40 mg SUBCUT BID [facility] Last Admin: 08/21/20 08:46 Dose: 40 mg Documented by: Fish Oil (Fish Oil) 2 gm PO DAILY [facility] Last Admin: 08/21/20 08:46 Dose: 2 gm Documented by: Hydrocortisone (Hydrocortisone 1% Crm) 30 gm TOP Q6H PRN PRN Reason: Hives Last Admin: 08/20/20 17:59 Dose: 1 applic Documented by: Insulin Human Lispro (Humalog) 0 unit SUBCUT QIDACANDBED [facility]; Protocol Loratadine (Claritin) 10 mg PO DAILY [facility] Last Admin: 08/21/20 08:46 Dose: 10 mg Documented by: Multivitamins (Thera) 1 each PO DAILY [facility] Last Admin: 08/21/20 08:46 Dose: 1 each Documented by: Pantoprazole Sodium (Protonix) 40 mg PO DAILY [facility] Last Admin: 08/21/20 08:46 Dose: 40 mg Documented by: Discontinued Medications Dexamethasone (Dexamethasone) 6 mg PO Q24H [facility] Stop: 08/30/20 21:01 Diphenhydramine HCl (Benadryl) 50 mg IVPUSH ONETIME ONE Stop: 08/20/20 16:31 Last Admin: 08/20/20 16:31 Dose: 50 mg Documented by: Diphenhydramine HCl (Benadryl) Confirm Administered Dose 50 mg .ROUTE .STK-MED ONE Stop: 08/20/20 16:29 Last Admin: 08/20/20 17:49 Dose: Not Given Documented by: Diphenhydramine HCl (Benadryl) 50 mg PO ONETIME ONE Stop: 08/20/20 22:35 Last Admin: 08/20/20 22:53 Dose: 50 mg Documented by: Famotidine (Pepcid) 20 mg PO ONETIME ONE Stop: 08/20/20 22:37 Last Admin: 08/20/20 22:53 Dose: 20 mg Documented by: Remdesivir 200 mg/ Sodium (Chloride) 250 mls @ 250 mls/hr IV ONETIME ONE Stop: 08/19/20 22:14 Last Admin: 08/20/20 01:34 Dose: Not Given Documented by: Sodium Chloride (Normal Saline) 250 mls @ 100 mls/hr IV ASDIRECTED FABIAN Loratadine (Claritin) 10 mg PO ONETIME ONE Stop: 08/20/20 22:36 Last Admin: 08/20/20 22:53 Dose: 10 mg Documented by: - Exam Quality Assessment: Supplemental Oxygen General: Alert, Oriented HEENT: Pupils Equal, Mucous Membr. Moist/[place] Neck: Supple Lungs: Clear to Auscultation, Normal Respiratory Effort Cardiovascular: Regular Rate, Regular Rhythm GI/Abdominal Exam: Normal Bowel Sounds, No Distention, No Mass Extremities: Normal Inspection, Normal Range of Motion, Non-Tender, No Pedal Edema, Normal Capillary Refill Skin: Warm, Dry, Intact Neurological: No New Focal Deficit Psy/Mental Status: Alert, Normal Affect, Normal Mood Sepsis Event Note - Evaluation Sepsis Screening Result: No Definite Risk - Focused Exam Vital Signs: Vital Signs Temp Pulse Resp BP Pulse Ox Pulse Ox 08/21/20 13:32 97.5 F 71 20 125/62 96 08/21/20 13:00 19 08/21/20 12:18 15 08/21/20 11:00 20 08/21/20 10:00 22 H 08/21/20 09:24 97.5 F 79 22 H 110/81 91 L 08/21/20 09:21 96 08/21/20 09:20 96 08/21/20 09:00 23 H 08/21/20 08:00 26 H 08/21/20 07:00 22 H 08/21/20 06:00 21 H 08/21/20 05:59 98.1 F 71 19 127/77 92 L 08/21/20 05:23 93 L 08/21/20 05:00 27 H - Problem List & Annotations (1) Pneumonia due to COVID-19 virus SNOMED Code(s): 815442941797818344 Code(s): U07.1 - COVID-19; J12.89 - OTHER VIRAL PNEUMONIA Status: Acute Current Visit: Yes (2) COVID-19 SNOMED Code(s): 432909049 Code(s): U07.1 - COVID-19 Status: Acute Current Visit: Yes (3) Exacerbation of asthma SNOMED Code(s): 434090956 Code(s): J45.901 - UNSPECIFIED ASTHMA WITH (ACUTE) EXACERBATION Status: Acute Current Visit: No - Problem List Review Problem List Initiated/Reviewed/Updated: Yes - My Orders Last 24 Hours: My Active Orders 08/20/20 17:51 Hydrocortisone [Hydrocortisone 1% Crm] 30 gm TOP Q6H PRN 08/20/20 18:00 ClonazePAM [KlonoPIN] 1 mg PO QPM 08/20/20 23:00 dexAMETHasone 6 mg PO Q24H 08/21/20 09:00 Fish Oil/[place]-3 Fatty Acids [Fish Oil] 2 gm PO DAILY Multivitamins,Therapeutic [Thera] 1 each PO DAILY 08/21/20 11:00 Insulin Lispro [HumaLOG] See Protocol SUBCUT QIDACANDBED 08/21/20 12:56 Admission Status [Patient Status] [ADT] Routine - Plan Plan:: 08/20/2020 Severe COVID disease COVID-19 pneumonia * Patient was at an SPO2 of 70% on room air when he presented to the emergency department. * Chest x-ray consistent with viral pneumonia * Refused remdesivir in the emergency department * Was on dexamethasone 8 mg twice daily x1 day. This is a significantly higher dose then studied. * Last fever was 08/17/2020 * Pertinent lab results: WBC 4.2, fibrinogen 705, d-dimer is 0.44, CRP 12, lactic acid 1.5, troponin less than 0.017, creatinine kinase 560, proBNP 24, ABG: pH 7.41, PCO2 37.3, PO2 68, bicarb 23.4, O2 saturation 93.6% on 3 L nasal cannula. * Risk factors that increase risk for poor prognosis: Obesity, male age, prediabetes, asthma Prediabetes * Blood sugar 201, but patient did take 16 mg of dexamethasone today. * Unknown hemoglobin A1c * On metformin Asthma * Mild intermittent * Home meds only include albuterol inhaler as needed Anxiety * On clonazepam twice daily * No complaints of anxiety on admission * Continue to monitor closely because dexamethasone can worsen symptoms of anxiety. 08/21/2020 Severe COVID disease with pneumonia Due to Bernadette reactionresolved Prediabetes Asthma Anxiety * Patient is on 3 L nasal cannula. No significant change from yesterday. * He received 2 units of convalescent plasma * No significant wheezing on exam. * Hemoglobin A1c of 5.6 * On metformin at at home * D-dimer increased to 0.95 * CRP decreased to 4.7. * TSH 0.526 * Anxiety stable Plan * Patient is considering remdesivir treatment. He has not made up his mind yet. * Dexamethasone at 6 mg daily for a total of 10 days. Day 3 of 10 * Fingerstick blood sugar before meals and at bedtime. * Sliding scale insulin * Get CBC, CMP, mag, CRP, and d-dimer tomorrow morning. * Albuterol 2 puffs every 4 hours as needed * Consider remdesivir tomorrow if not improving. VTE prophylaxis with Lovenox CODE STATUS: Full code Disposition admit to medical floor for COVID-19 treatment
[2020-08-21] MEDS: Insulin Lispro 100 Units/ML 3 ML Vial SUBCUT SCH ×3 (17:05→22:48)
[2020-08-21] MEDS ORDERED: Dexamethasone 4 MG Tab PO SCH (21:00)
[2020-08-21] MEDS: Dexamethasone 4 MG Tab PO SCH (22:43)
[2020-08-22] MEDS: ClonazePAM 1 MG Tab PO SCH ×2 (08:10→17:22)
[2020-08-22] MEDS: Loratadine 10 MG Tab PO SCH (08:11)
[2020-08-22] MEDS: Enoxaparin 40 MG/0.4 ML Syringe SUBCUT SCH ×2 (08:11→22:10)
[2020-08-22] MEDS: Multivitamins,Therapeutic Tab PO SCH (08:11)
[2020-08-22] MEDS: Pantoprazole 40 MG Tab.CR PO SCH (08:11)
[2020-08-22] MEDS: Fish Oil/Omega-3 Fatty Acids 1 Gm Cap PO SCH (08:11)
[2020-08-22] MEDS: Insulin Lispro 100 Units/ML 3 ML Vial SUBCUT SCH ×4 (08:12→22:08)
--- NOTE | 2020-08-22 09:50 | PCM.PN ---
- General Info Date of Service: 08/22/20 Admission Dx/Problem (Free Text): Admission Diagnosis/Problem Admission Diagnosis/Problem Hypoxia Subjective Update: The patient is a 40-year-old gentleman who was admitted to hospitalization on August 19, 2020. Patient had tested positive for Covid. Today the patient has been without fever. He has been doing better. Patient has been tolerating diet. Functional Status: Reports: Pain Controlled, Tolerating Diet - Review of Systems General: Reports: No Symptoms HEENT: Reports: No Symptoms Pulmonary: Reports: No Symptoms Cardiovascular: Reports: No Symptoms Gastrointestinal: Reports: No Symptoms Genitourinary: Reports: No Symptoms Musculoskeletal: Reports: No Symptoms Skin: Reports: No Symptoms Neurological: Reports: No Symptoms Psychiatric: Reports: No Symptoms - Patient Data Vitals - Most Recent: Last Vital Signs Temp 36.4 C 08/22/20 07:26 Pulse 68 08/22/20 07:26 Resp 18 08/22/20 07:26 BP 126/90 08/22/20 07:26 Pulse Ox 91 L 08/22/20 07:26 Weight - Most Recent: 139.979 kg I&O - Last 24 Hours: Intake & Output 08/21/20 08/22/20 08/22/20 22:59 06:59 14:59 Intake Total 640 400 Output Total 550 Balance 640 -150 Lab Results Last 24 Hours: Laboratory Results - last 24 hr 08/21/20 08/21/20 08/21/20 Range/Units 08:58 12:46 17:38 POC Glucose 172 H 102 92 (70-105) mg/dL 08/21/20 08/22/20 Range/Units 22:48 07:11 POC Glucose 115 H 159 H (70-105) mg/dL Rusty Results Last 24 Hours: Microbiology 08/19/20 22:52 Aerobic Blood Culture - Preliminary Blood - Venous - Lab Draw NO GROWTH AFTER 2 DAYS Anaerobic Blood Culture - Preliminary NO GROWTH AFTER 2 DAYS 08/19/20 22:45 Aerobic Blood Culture - Preliminary Blood - Venous NO GROWTH AFTER 2 DAYS Anaerobic Blood Culture - Preliminary NO GROWTH AFTER 2 DAYS Med Orders - Current: Current Medications Acetaminophen (Tylenol) 650 mg PO Q4H PRN PRN Reason: Pain (Mild 1-3)/fever Albuterol (Proventil Hfa) 0 gm INH Q4H PRN PRN Reason: Wheezing Clonazepam (Klonopin) 1 mg PO QPM [facility] Last Admin: 08/21/20 18:39 Dose: 1 mg Documented by: Clonazepam (Klonopin) 2 mg PO DAILY [facility] Last Admin: 08/22/20 08:10 Dose: 2 mg Documented by: Dexamethasone (Dexamethasone) 6 mg PO Q24H [facility] Stop: 08/29/20 23:01 Last Admin: 08/21/20 22:43 Dose: 6 mg Documented by: Enoxaparin Sodium (Lovenox) 40 mg SUBCUT BID [facility] Last Admin: 08/22/20 08:11 Dose: 40 mg Documented by: Fish Oil (Fish Oil) 2 gm PO DAILY [facility] Last Admin: 08/22/20 08:11 Dose: 2 gm Documented by: Hydrocortisone (Hydrocortisone 1% Crm) 30 gm TOP Q6H PRN PRN Reason: Hives Last Admin: 08/20/20 17:59 Dose: 1 applic Documented by: Insulin Human Lispro (Humalog) 0 unit SUBCUT QIDACANDBED [facility]; Protocol Last Admin: 08/22/20 08:12 Dose: 1 units Documented by: Loratadine (Claritin) 10 mg PO DAILY [facility] Last Admin: 08/22/20 08:11 Dose: 10 mg Documented by: Multivitamins (Thera) 1 each PO DAILY [facility] Last Admin: 08/22/20 08:11 Dose: 1 each Documented by: Pantoprazole Sodium (Protonix) 40 mg PO DAILY [facility] Last Admin: 08/22/20 08:11 Dose: 40 mg Documented by: Discontinued Medications Dexamethasone (Dexamethasone) 6 mg PO Q24H [facility] Stop: 08/30/20 21:01 Diphenhydramine HCl (Benadryl) 50 mg IVPUSH ONETIME ONE Stop: 08/20/20 16:31 Last Admin: 08/20/20 16:31 Dose: 50 mg Documented by: Diphenhydramine HCl (Benadryl) Confirm Administered Dose 50 mg .ROUTE .STK-MED ONE Stop: 08/20/20 16:29 Last Admin: 08/20/20 17:49 Dose: Not Given Documented by: Diphenhydramine HCl (Benadryl) 50 mg PO ONETIME ONE Stop: 08/20/20 22:35 Last Admin: 08/20/20 22:53 Dose: 50 mg Documented by: Famotidine (Pepcid) 20 mg PO ONETIME ONE Stop: 08/20/20 22:37 Last Admin: 08/20/20 22:53 Dose: 20 mg Documented by: Remdesivir 200 mg/ Sodium (Chloride) 250 mls @ 250 mls/hr IV ONETIME ONE Stop: 08/19/20 22:14 Last Admin: 08/20/20 01:34 Dose: Not Given Documented by: Sodium Chloride (Normal Saline) 250 mls @ 100 mls/hr IV ASDIRECTED [facility] Loratadine (Claritin) 10 mg PO ONETIME ONE Stop: 08/20/20 22:36 Last Admin: 08/20/20 22:53 Dose: 10 mg Documented by: - Exam Quality Assessment: No: Supplemental Oxygen General: Alert, Oriented, Cooperative, No Acute Distress HEENT: Pupils Equal, Pupils Reactive Neck: Supple, Trachea Midline Lungs: Clear to Auscultation, Normal Respiratory Effort Cardiovascular: Regular Rate, Regular Rhythm GI/Abdominal Exam: Normal Bowel Sounds, Soft, Non-Tender, No Distention (Male) Exam: Deferred Back Exam: Normal Inspection, Full Range of Motion Extremities: Normal Inspection, No Pedal Edema Skin: Warm, Dry, Intact Neurological: No New Focal Deficit Psy/Mental Status: Alert, Normal Affect, Normal Mood Sepsis Event Note - Evaluation Sepsis Screening Result: No Definite Risk - Focused Exam Vital Signs: Vital Signs Temp Pulse Resp BP Pulse Ox 08/22/20 07:26 36.4 C 68 18 126/90 91 L 08/22/20 07:09 52 L 94 L 08/22/20 05:15 93 L 08/22/20 04:39 36.4 C 57 L 13 131/68 95 08/21/20 22:41 36.9 C 72 13 111/72 - Problem List & Annotations (1) COVID-19 SNOMED Code(s): 953636881 Code(s): U07.1 - COVID-19 Status: Acute Priority: High Current Visit: Yes (2) Pneumonia due to COVID-19 virus SNOMED Code(s): 592129628125678119 Code(s): U07.1 - COVID-19; J12.89 - OTHER VIRAL PNEUMONIA Status: Acute Priority: High Current Visit: Yes - Problem List Review Problem List Initiated/Reviewed/Updated: Yes - Plan Plan:: 08/20/2020 Severe COVID disease COVID-19 pneumonia * Patient was at an SPO2 of 70% on room air when he presented to the emergency department. * Chest x-ray consistent with viral pneumonia * Refused remdesivir in the emergency department * Was on dexamethasone 8 mg twice daily x1 day. This is a significantly higher dose then studied. * Last fever was 08/17/2020 * Pertinent lab results: WBC 4.2, fibrinogen 705, d-dimer is 0.44, CRP 12, l actic acid 1.5, troponin less than 0.017, creatinine kinase 560, proBNP 24, ABG: pH 7.41, PCO2 37.3, PO2 68, bicarb 23.4, O2 saturation 93.6% on 3 L nasal cannula. * Risk factors that increase risk for poor prognosis: Obesity, male age, prediabetes, asthma Prediabetes * Blood sugar 201, but patient did take 16 mg of dexamethasone today. * Unknown hemoglobin A1c * On metformin Asthma * Mild intermittent * Home meds only include albuterol inhaler as needed Anxiety * On clonazepam twice daily * No complaints of anxiety on admission * Continue to monitor closely because dexamethasone can worsen symptoms of anxiety. 08/21/2020 Severe COVID disease with pneumonia Due to Bernadette reactionresolved Prediabetes Asthma Anxiety * Patient is on 3 L nasal cannula. No significant change from yesterday. * He received 2 units of convalescent plasma * No significant wheezing on exam. * Hemoglobin A1c of 5.6 * On metformin at at home * D-dimer increased to 0.95 * CRP decreased to 4.7. * TSH 0.526 * Anxiety stable Plan * Patient is considering remdesivir treatment. He has not made up his mind yet. * Dexamethasone at 6 mg daily for a total of 10 days. Day 3 of 10 * Fingerstick blood sugar before meals and at bedtime. * Sliding scale insulin * Get CBC, CMP, mag, CRP, and d-dimer tomorrow morning. * Albuterol 2 puffs every 4 hours as needed * Consider remdesivir tomorrow if not improving. VTE prophylaxis with Lovenox CODE STATUS: Full code Disposition admit to medical floor for COVID-19 treatment 08/22/2020 Continue to monitor patient's vital signs and to keep his oxygen levels above 90%. Patient will also be kept on dexamethasone as he is currently day 4 of 10. CBC and comprehensive metabolic panel have been ordered. Continue with DVT prophylaxis. Patient has been encouraged to ambulate. Patient's blood sugar will be monitored and likely elevated secondary to the dexamethasone.
[2020-08-22] MEDS: Dexamethasone 4 MG Tab PO SCH (22:09)
[2020-08-23] MEDS: Insulin Lispro 100 Units/ML 3 ML Vial SUBCUT SCH ×4 (09:01→22:02)
[2020-08-23] MEDS: Enoxaparin 40 MG/0.4 ML Syringe SUBCUT SCH ×2 (09:03→21:58)
[2020-08-23] MEDS: Loratadine 10 MG Tab PO SCH (09:03)
[2020-08-23] MEDS: Fish Oil/Omega-3 Fatty Acids 1 Gm Cap PO SCH (09:04)
[2020-08-23] MEDS: Multivitamins,Therapeutic Tab PO SCH (09:04)
[2020-08-23] MEDS: ClonazePAM 1 MG Tab PO SCH ×2 (09:04→17:58)
[2020-08-23] MEDS: Pantoprazole 40 MG Tab.CR PO SCH (09:04)
--- NOTE | 2020-08-23 13:40 | PCM.PN ---
- General Info Date of Service: 08/23/20 Admission Dx/Problem (Free Text): Admission Diagnosis/Problem Admission Diagnosis/Problem Hypoxia Subjective Update: The patient is a 40-year-old gentleman who was admitted to hospitalization on August 19, 2020. Patient had tested positive for Covid. Today the patient has been without fever. The patient also reports that he has no money for medications upon discharge. Patient says that he also feels weak today. Patien t has been tolerating diet. Functional Status: Reports: Pain Controlled - Review of Systems General: Reports: Weakness HEENT: Reports: No Symptoms Pulmonary: Reports: Cough Cardiovascular: Reports: No Symptoms Gastrointestinal: Reports: No Symptoms Genitourinary: Reports: No Symptoms Musculoskeletal: Reports: No Symptoms Skin: Reports: No Symptoms Neurological: Reports: No Symptoms Psychiatric: Reports: No Symptoms - Patient Data Vitals - Most Recent: Last Vital Signs Temp 36.2 C 08/23/20 08:58 Pulse 77 08/23/20 08:58 Resp 18 08/23/20 08:58 BP 124/68 08/23/20 08:58 Pulse Ox 94 L 08/23/20 08:58 Weight - Most Recent: 141.249 kg I&O - Last 24 Hours: Intake & Output 08/22/20 08/23/20 08/23/20 22:59 06:59 14:59 Intake Total 2450 675 620 Output Total 700 Balance 2450 -25 620 Lab Results Last 24 Hours: Laboratory Results - last 24 hr 08/22/20 08/22/20 08/23/20 Range/Units 17:23 21:25 05:32 WBC 8.23 (4.23-9.07) K/mm3 RBC 4.98 (4.63-6.08) M/mm3 Hgb 14.4 (13.7-17.5) gm/dl Hct 43.7 (40.1-51.0) % MCV 87.8 (79.0-92.2) fl MCH 28.9 (25.7-32.2) pg MCHC 33.0 (32.2-35.5) g/dl RDW Std Deviation 40.7 (35.1-43.9) fL Plt Count 360 H (163-337) K/mm3 MPV 10.7 (9.4-12.3) fl Neut % (Auto) 75.7 H (34.0-67.9) % Lymph % (Auto) 15.9 L (21.8-53.1) % [place] % (Auto) 6.4 (5.3-12.2) % Eos % (Auto) 0.6 L (0.8-7.0) Baso % (Auto) 0.2 (0.1-1.2) % Neut # (Auto) 6.22 H (1.78-5.38) K/mm3 Lymph # (Auto) 1.31 L (1.32-3.57) K/mm3 [place] # (Auto) 0.53 (0.30-0.82) K/mm3 Eos # (Auto) 0.05 (0.04-0.54) K/mm3 Baso # (Auto) 0.02 (0.01-0.08) K/mm3 Manual Slide Review Normal smear D-Dimer, Quantitative (0.19-0.50) mg/L Sodium (136-145) mEq/L Potassium (3.5-5.1) mEq/L Chloride (98-107) mEq/L Carbon Dioxide (21-32) mEq/L Anion Gap (5-15) BUN (7-18) mg/dL Creatinine (0.7-1.3) mg/dL Est Cr Clr Drug Dosing mL/min Estimated GFR (MDRD) (>60) mL/min BUN/Creatinine Ratio (14-18) Glucose (74-106) mg/dL POC Glucose 123 H 134 H (70-105) mg/dL Calcium (8.5-10.1) mg/dL 08/23/20 08/23/20 08/23/20 Range/Units 05:32 05:32 06:54 WBC (4.23-9.07) K/mm3 RBC (4.63-6.08) M/mm3 Hgb (13.7-17.5) gm/dl Hct (40.1-51.0) % MCV (79.0-92.2) fl MCH (25.7-32.2) pg MCHC (32.2-35.5) g/dl RDW Std Deviation (35.1-43.9) fL Plt Count (163-337) K/mm3 MPV (9.4-12.3) fl Neut % (Auto) (34.0-67.9) % Lymph % (Auto) (21.8-53.1) % [place] % (Auto) (5.3-12.2) % Eos % (Auto) (0.8-7.0) Baso % (Auto) (0.1-1.2) % Neut # (Auto) (1.78-5.38) K/mm3 Lymph # (Auto) (1.32-3.57) K/mm3 [place] # (Auto) (0.30-0.82) K/mm3 Eos # (Auto) (0.04-0.54) K/mm3 Baso # (Auto) (0.01-0.08) K/mm3 Manual Slide Review D-Dimer, Quantitative 0.41 (0.19-0.50) mg/L Sodium 141 (136-145) mEq/L Potassium 4.2 (3.5-5.1) mEq/L Chloride 106 (98-107) mEq/L Carbon Dioxide 26 (21-32) mEq/L Anion Gap 13.2 (5-15) BUN 20 H (7-18) mg/dL Creatinine 0.9 (0.7-1.3) mg/dL Est Cr Clr Drug Dosing 118.56 mL/min Estimated GFR (MDRD) > 60 (>60) mL/min BUN/Creatinine Ratio 22.2 H (14-18) Glucose 197 H (74-106) mg/dL POC Glucose 186 H (70-105) mg/dL Calcium 8.9 (8.5-10.1) mg/dL 08/23/20 Range/Units 11:37 WBC (4.23-9.07) K/mm3 RBC (4.63-6.08) M/mm3 Hgb (13.7-17.5) gm/dl Hct (40.1-51.0) % MCV (79.0-92.2) fl MCH (25.7-32.2) pg MCHC (32.2-35.5) g/dl RDW Std Deviation (35.1-43.9) fL Plt Count (163-337) K/mm3 MPV (9.4-12.3) fl Neut % (Auto) (34.0-67.9) % Lymph % (Auto) (21.8-53.1) % [place] % (Auto) (5.3-12.2) % Eos % (Auto) (0.8-7.0) Baso % (Auto) (0.1-1.2) % Neut # (Auto) (1.78-5.38) K/mm3 Lymph # (Auto) (1.32-3.57) K/mm3 [place] # (Auto) (0.30-0.82) K/mm3 Eos # (Auto) (0.04-0.54) K/mm3 Baso # (Auto) (0.01-0.08) K/mm3 Manual Slide Review D-Dimer, Quantitative (0.19-0.50) mg/L Sodium (136-145) mEq/L Potassium (3.5-5.1) mEq/L Chloride (98-107) mEq/L Carbon Dioxide (21-32) mEq/L Anion Gap (5-15) BUN (7-18) mg/dL Creatinine (0.7-1.3) mg/dL Est Cr Clr Drug Dosing mL/min Estimated GFR (MDRD) (>60) mL/min BUN/Creatinine Ratio (14-18) Glucose (74-106) mg/dL POC Glucose 163 H (70-105) mg/dL Calcium (8.5-10.1) mg/dL Rusty Results Last 24 Hours: Microbiology 08/19/20 22:52 Aerobic Blood Culture - Preliminary Blood - Venous - Lab Draw NO GROWTH AFTER 3 DAYS Anaerobic Blood Culture - Preliminary NO GROWTH AFTER 3 DAYS 08/19/20 22:45 Aerobic Blood Culture - Preliminary Blood - Venous NO GROWTH AFTER 3 DAYS Anaerobic Blood Culture - Preliminary NO GROWTH AFTER 3 DAYS Med Orders - Current: Current Medications Acetaminophen (Tylenol) 650 mg PO Q4H PRN PRN Reason: Pain (Mild 1-3)/fever Albuterol (Proventil Hfa) 0 gm INH Q4H PRN PRN Reason: Wheezing Clonazepam (Klonopin) 1 mg PO QPM [facility] Last Admin: 08/22/20 17:22 Dose: 1 mg Documented by: Clonazepam (Klonopin) 2 mg PO DAILY [facility] Last Admin: 08/23/20 09:04 Dose: 2 mg Documented by: Dexamethasone (Dexamethasone) 6 mg PO Q24H [facility] Stop: 08/29/20 23:01 Last Admin: 08/22/20 22:09 Dose: 6 mg Documented by: Enoxaparin Sodium (Lovenox) 40 mg SUBCUT BID [facility] Last Admin: 08/23/20 09:03 Dose: 40 mg Documented by: Fish Oil (Fish Oil) 2 gm PO DAILY [facility] Last Admin: 08/23/20 09:04 Dose: 2 gm Documented by: Hydrocortisone (Hydrocortisone 1% Crm) 30 gm TOP Q6H PRN PRN Reason: Hives Last Admin: 08/20/20 17:59 Dose: 1 applic Documented by: Insulin Human Lispro (Humalog) 0 unit SUBCUT QIDACANDBED [facility]; Protocol Last Admin: 08/23/20 11:58 Dose: 1 units Documented by: Loratadine (Claritin) 10 mg PO DAILY [facility] Last Admin: 08/23/20 09:03 Dose: 10 mg Documented by: Multivitamins (Thera) 1 each PO DAILY [facility] Last Admin: 08/23/20 09:04 Dose: 1 each Documented by: Pantoprazole Sodium (Protonix) 40 mg PO DAILY [facility] Last Admin: 08/23/20 09:04 Dose: 40 mg Documented by: Discontinued Medications Dexamethasone (Dexamethasone) 6 mg PO Q24H [facility] Stop: 08/30/20 21:01 Diphenhydramine HCl (Benadryl) 50 mg IVPUSH ONETIME ONE Stop: 08/20/20 16:31 Last Admin: 08/20/20 16:31 Dose: 50 mg Documented by: Diphenhydramine HCl (Benadryl) Confirm Administered Dose 50 mg .ROUTE .STK-MED ONE Stop: 08/20/20 16:29 Last Admin: 08/20/20 17:49 Dose: Not Given Documented by: Diphenhydramine HCl (Benadryl) 50 mg PO ONETIME ONE Stop: 08/20/20 22:35 Last Admin: 08/20/20 22:53 Dose: 50 mg Documented by: Famotidine (Pepcid) 20 mg PO ONETIME ONE Stop: 08/20/20 22:37 Last Admin: 08/20/20 22:53 Dose: 20 mg Documented by: Remdesivir 200 mg/ Sodium (Chloride) 250 mls @ 250 mls/hr IV ONETIME ONE Stop: 08/19/20 22:14 Last Admin: 08/20/20 01:34 Dose: Not Given Documented by: Sodium Chloride (Normal Saline) 250 mls @ 100 mls/hr IV ASDIRECTED [facility] Loratadine (Claritin) 10 mg PO ONETIME ONE Stop: 08/20/20 22:36 Last Admin: 08/20/20 22:53 Dose: 10 mg Documented by: - Exam Quality Assessment: No: Supplemental Oxygen General: Alert, Oriented, Cooperative, No Acute Distress, Other (Obese) HEENT: Pupils Equal, Pupils Reactive, EOMI Neck: Supple, Trachea Midline Lungs: Clear to Auscultation, Normal Respiratory Effort Cardiovascular: Regular Rate, Regular Rhythm GI/Abdominal Exam: Normal Bowel Sounds, Soft, Non-Tender, No Distention (Male) Exam: Deferred Back Exam: Normal Inspection, Full Range of Motion Extremities: Normal Inspection, No Pedal Edema Skin: Warm, Dry, Intact Neurological: No New Focal Deficit Psy/Mental Status: Alert, Normal Affect Sepsis Event Note - Evaluation Sepsis Screening Result: No Definite Risk - Focused Exam Vital Signs: Vital Signs Temp Pulse Resp BP Pulse Ox 08/23/20 08:58 36.2 C 77 18 124/68 94 L 08/23/20 04:21 36.7 C 64 16 110/58 L 92 L - Problem List & Annotations (1) COVID-19 SNOMED Code(s): 703487885 Code(s): U07.1 - COVID-19 Status: Acute Priority: High Current Visit: Yes (2) Pneumonia due to COVID-19 virus SNOMED Code(s): 749149197588762533 Code(s): U07.1 - COVID-19; J12.89 - OTHER VIRAL PNEUMONIA Status: Acute Priority: High Current Visit: Yes - Problem List Review Problem List Initiated/Reviewed/Updated: Yes - My Orders Last 24 Hours: My Active Orders 08/22/20 14:34 Up ad Liset [RC] 09 08/22/20 15:21 Peripheral IV Discontinue [OM.PC] Routine 08/23/20 05:32 CRP, HIGH SENSITIVITY [REF] DAILY - Plan Plan:: 08/20/2020 Severe COVID disease COVID-19 pneumonia * Patient was at an SPO2 of 70% on room air when he presented to the emergency department. * Chest x-ray consistent with viral pneumonia * Refused remdesivir in the emergency department * Was on dexamethasone 8 mg twice daily x1 day. This is a significantly higher dose then studied. * Last fever was 08/17/2020 * Pertinent lab results: WBC 4.2, fibrinogen 705, d-dimer is 0.44, CRP 12, lactic acid 1.5, troponin less than 0.017, creatinine kinase 560, proBNP 24, ABG: pH 7.41, PCO2 37.3, PO2 68, bicarb 23.4, O2 saturation 93.6% on 3 L nasal cannula. * Risk factors that increase risk for poor prognosis: Obesity, male age, prediabetes, asthma Prediabetes * Blood sugar 201, but patient did take 16 mg of dexamethasone today. * Unknown hemoglobin A1c * On metformin Asthma * Mild intermittent * Home meds only include albuterol inhaler as needed Anxiety * On clonazepam twice daily * No complaints of anxiety on admission * Continue to monitor closely because dexamethasone can worsen symptoms of anxiety. 08/21/2020 Severe COVID disease with pneumonia Due to Bernadette reactionresolved Prediabetes Asthma Anxiety * Patient is on 3 L nasal cannula. No significant change from yesterday. * He received 2 units of convalescent plasma * No significant wheezing on exam. * Hemoglobin A1c of 5.6 * On metformin at at home * D-dimer increased to 0.95 * CRP decreased to 4.7. * TSH 0.526 * Anxiety stable Plan * Patient is considering remdesivir treatment. He has not made up his mind yet. * Dexamethasone at 6 mg daily for a total of 10 days. Day 3 of 10 * Fingerstick blood sugar before meals and at bedtime. * Sliding scale insulin * Get CBC, CMP, mag, CRP, and d-dimer tomorrow morning. * Albuterol 2 puffs every 4 hours as needed * Consider remdesivir tomorrow if not improving. VTE prophylaxis with Lovenox CODE STATUS: Full code Disposition admit to medical floor for COVID-19 treatment 08/22/2020 Continue to monitor patient's vital signs and to keep his oxygen levels above 90%. Patient will also be kept on dexamethasone as he is currently day 4 . CBC and comprehensive metabolic panel have been ordered. Continue with DVT prophylaxis. Patient has been encouraged to ambulate. Patient's blood sugar will be monitored and likely elevated secondary to the dexamethasone. 08/23/2020 The patient will be continued in hospitalization as he has no money for medications upon discharge. I am concerned that he will be right back in hospitalization. Case management should be able to work with the patient to help obtain medications. The patient will also be maintained on dexamethasone. Patient will have oxygen if necessary to keep the saturations above 90%. DVT prophylaxis. Patient has been ambulating on his own. Repeat laboratory studies have been ordered.
[2020-08-23] MEDS: Dexamethasone 4 MG Tab PO SCH (22:00)
[2020-08-24] MEDS: Enoxaparin 40 MG/0.4 ML Syringe SUBCUT SCH (08:46)
[2020-08-24] MEDS: Insulin Lispro 100 Units/ML 3 ML Vial SUBCUT SCH ×2 (08:49→12:34)
[2020-08-24] MEDS: Multivitamins,Therapeutic Tab PO SCH (08:55)
[2020-08-24] MEDS: Fish Oil/Omega-3 Fatty Acids 1 Gm Cap PO SCH (08:55)
[2020-08-24] MEDS: ClonazePAM 1 MG Tab PO SCH (08:55)
[2020-08-24] MEDS: Loratadine 10 MG Tab PO SCH (08:56)
[2020-08-24] MEDS: Pantoprazole 40 MG Tab.CR PO SCH (08:56)
--- NOTE | 2020-08-24 11:58 | PCM.DCSUM1 ---
<Dugan,DeAnn M - Last Filed: 08/24/20 12:03> Discharge Summary - Hospital Course Free Text/Narrative:: 40-year-old male tested positive for COVID-19 on 09-01 presents to the emergency department last night with cough, shortness of breath, pleuritic chest pain, and fever. Patient states it first started occurring at the end of last month. His girlfriend is a teacher and he got it from her. On 08/16/2020 he was seen in the emergency department with similar symptoms and was given dexamethasone 8 mg twice daily for 3 days. Patient just started it on the seventh, day of second visit to the emergency department, and took 8 mg in the morning and 8 mg in the evening. His symptoms have continued to worsen. He had a fever of 103 and 4 to 5 days of watery diarrhea. He denies any nausea, vomiting, or abdominal pain. Patient had a oxygen saturation yesterday of 81% and was brought to the emergency department. In the emergency department his oxygen saturation was 70% and he was placed on 3 L nasal cannula. He does have a history of asthma, prediabetes, hyperlipidemia, obesity, and anxiety. EKG showed a sinus rhythm of 93 bpm. No significant abnormalities. In the emergency department it was recommended that the patient start remdesivir and the patient did not want to do so. He was concerned about side effects. Chest Diagnosis: Stroke: No - Discharge Data Discharge Date: 08/24/20 (Admit date: 08/19/20) Discharge Disposition: Home, Self-Care 01 Condition: Good - Referral to Home Health Primary Care Physician: RAEANN Sequeira - Discharge Diagnosis/Problem(s) (1) Allergic transfusion reaction SNOMED Code(s): 889081540 ICD Code: T80.89XA - OTH COMP FOL INFUSION, TRANSFUSE AND THERAPUTC INJECT, INIT Status: Acute Priority: High (2) COVID-19 SNOMED Code(s): 028477184 ICD Code: U07.1 - COVID-19 Status: Acute Priority: High (3) Pneumonia due to COVID-19 virus SNOMED Code(s): 329623649680112805 ICD Code: U07.1 - COVID-19; J12.89 - OTHER VIRAL PNEUMONIA Status: Acute Priority: High (4) Allergic reaction SNOMED Code(s): 711469814 ICD Code: T78.40XA - ALLERGY, UNSPECIFIED, INITIAL ENCOUNTER Status: Acute Priority: High Qualifiers: Encounter type: initial encounter Qualified Code(s): T78.40XA - Allergy, unspecified, initial encounter - Patient Summary/Data Hospital Course: Plan:: 08/20/2020 Severe COVID disease COVID-19 pneumonia * Patient was at an SPO2 of 70% on room air when he presented to the emergency department. * Chest x-ray consistent with viral pneumonia * Refused remdesivir in the emergency department * Was on dexamethasone 8 mg twice daily x1 day. This is a significantly higher dose then studied. * Last fever was 08/17/2020 * Pertinent lab results: WBC 4.2, fibrinogen 705, d-dimer is 0.44, CRP 12, lactic acid 1.5, troponin less than 0.017, creatinine kinase 560, proBNP 24, ABG: pH 7.41, PCO2 37.3, PO2 68, bicarb 23.4, O2 saturation 93.6% on 3 L nasal cannula. * Risk factors that increase risk for poor prognosis: Obesity, male age, prediabetes, asthma Prediabetes * Blood sugar 201, but patient did take 16 mg of dexamethasone today. * Unknown hemoglobin A1c * On metformin Asthma * Mild intermittent * Home meds only include albuterol inhaler as needed Anxiety * On clonazepam twice daily * No complaints of anxiety on admission * Continue to monitor closely because dexamethasone can worsen symptoms of anxiety. 08/21/2020 Severe COVID disease with pneumonia Due to Bernadette reactionresolved Prediabetes Asthma Anxiety * Patient is on 3 L nasal cannula. No significant change from yesterday. * He received 2 units of convalescent plasma * No significant wheezing on exam. * Hemoglobin A1c of 5.6 * On metformin at at home * D-dimer increased to 0.95 * CRP decreased to 4.7. * TSH 0.526 * Anxiety stable Plan * Patient is considering remdesivir treatment. He has not made up his mind yet. * Dexamethasone at 6 mg daily for a total of 10 days. Day 3 of 10 * Fingerstick blood sugar before meals and at bedtime. * Sliding scale insulin * Get CBC, CMP, mag, CRP, and d-dimer tomorrow morning. * Albuterol 2 puffs every 4 hours as needed * Consider remdesivir tomorrow if not improving. VTE prophylaxis with Lovenox CODE STATUS: Full code Disposition admit to medical floor for COVID-19 treatment 08/22/2020 Continue to monitor patient's vital signs and to keep his oxygen levels above 90%. Patient will also be kept on dexamethasone as he is currently day 4 of 10. CBC and comprehensive metabolic panel have been ordered. Continue with DVT prophylaxis. Patient has been encouraged to ambulate. Patient's blood sugar will be monitored and likely elevated secondary to the dexamethasone. 08/23/2020 The patient will be continued in hospitalization as he has no money for medications upon discharge. I am concerned that he will be right back in hospitalization. Case management should be able to work with the patient to help obtain medications. The patient will also be maintained on dexamethasone. Patient will have oxygen if necessary to keep the saturations above 90%. DVT prophylaxis. Patient has been ambulating on his own. Repeat laboratory studies have been ordered. 08/24/20 The patient will be discharged to home today. He will continue his last 5 days of dexamethasone 6 mg daily. This prescription will be filled by our hospital pharmacy and the medication will be sent home with the patient as he cannot afford this medication. Tobacco medications were refused by this patient upon discharge. He is to follow-up with his primary care provider in 1 week. Follow-up with primary care provider or the emergency department should his conditions worsen or change. - Patient Instructions Diet: Usual Diet as Tolerated Activity: As Tolerated Driving: May Drive Today Other/Special Instructions: Discharge to home. Follow up with primary care physician in 1 week. Dexamethasone 6mg by mouth daily until gone. Resume all previous home medication. If your condition worsens or changes, follow up with primary care or the emergency department. - Discharge Plan *PRESCRIPTION DRUG MONITORING PROGRAM REVIEWED*: Not Applicable *COPY OF PRESCRIPTION DRUG MONITORING REPORT IN PATIENT JOAQUIM: Not Applicable Prescriptions/Med Rec: dexAMETHasone [Dexamethasone] 4 mg PO DAILY 5 Days #7.5 tablet Home Medications: Home Meds Albuterol [Ventolin HFA] 2 puff INH Q4H PRN 06/21/15 [History] Esomeprazole Magnesium [Nexium] 40 mg PO DAILY 06/21/15 [History] metFORMIN HCl [Metformin ER Osmotic] 1,000 mg PO BID 06/27/18 [History] Loratadine 10 mg PO DAILY 06/07/19 [History] Multivitamin [Daily Multiple Vitamin] 1 tab PO DAILY 10/09/19 [History] [place]-3S/DHA/Epa/Fish Oil [[place]-3 Fish Oil 1,000 mg Sfgl] 2 cap PO DAILY 10/09/19 [History] clonazePAM [Clonazepam] 1 mg PO QPM 10/09/19 [History] clonazePAM [Clonazepam] 2 mg PO QAM 10/09/19 [History] dexAMETHasone [Dexamethasone] 4 mg PO DAILY 5 Days #7.5 tablet 08/24/20 [Rx] Oxygen Therapy Mode: Room Air Patient Handouts: Smoking Tobacco Information, Adult, COVID-19, Sepsis, Diagnosis, Adult, Tobacco Use Disorder, Steps to Quit Smoking Forms: ED Department Discharge Referrals: Ami Judge PA-C [Primary Care Provider] - 09/01/20 10:45 am - Discharge Summary/Plan Comment DC Time >30 min.: No - General Info Date of Service: 08/24/20 Admission Dx/Problem (Free Text: Admission Diagnosis/Problem Admission Diagnosis/Problem Hypoxia Subjective Update: Doing much better today. States that he is just tired. Ready for discharge to home. Functional Status: Reports: Pain Controlled, Tolerating Diet, Ambulating, Urinating - Review of Systems General: Reports: No Symptoms HEENT: Reports: No Symptoms Pulmonary: Reports: Cough. Denies: Sputum Cardiovascular: Reports: No Symptoms Gastrointestinal: Reports: No Symptoms Genitourinary: Reports: No Symptoms Musculoskeletal: Reports: No Symptoms Skin: Reports: No Symptoms Neurological: Reports: No Symptoms Psychiatric: Reports: No Symptoms - Patient Data Vitals - Most Recent: Last Vital Signs Temp 97.5 F 08/24/20 07:42 Pulse 61 08/24/20 07:42 Resp 18 08/24/20 07:42 BP 117/80 08/24/20 07:42 Pulse Ox 95 08/24/20 07:42 Weight - Most Recent: 141.43 kg I&O - Last 24 hours: Intake & Output 08/23/20 08/24/20 08/24/20 22:59 06:59 14:59 Intake Total 950 700 320 Balance 950 700 320 Lab Results - Last 24 hrs: Laboratory Results - last 24 hr 08/23/20 08/23/20 08/23/20 Range/Units 16:41 20:41 21:20 WBC (4.23-9.07) K/mm3 RBC (4.63-6.08) M/mm3 Hgb (13.7-17.5) gm/dl Hct (40.1-51.0) % MCV (79.0-92.2) fl MCH (25.7-32.2) pg MCHC (32.2-35.5) g/dl RDW Std Deviation (35.1-43.9) fL Plt Count (163-337) K/mm3 MPV (9.4-12.3) fl Neut % (Auto) (34.0-67.9) % Lymph % (Auto) (21.8-53.1) % Cobb % (Auto) (5.3-12.2) % Eos % (Auto) (0.8-7.0) Baso % (Auto) (0.1-1.2) % Neut # (Auto) (1.78-5.38) K/mm3 Lymph # (Auto) (1.32-3.57) K/mm3 Cobb # (Auto) (0.30-0.82) K/mm3 Eos # (Auto) (0.04-0.54) K/mm3 Baso # (Auto) (0.01-0.08) K/mm3 Manual Slide Review Sodium (136-145) mEq/L Potassium (3.5-5.1) mEq/L Chloride (98-107) mEq/L Carbon Dioxide (21-32) mEq/L Anion Gap (5-15) BUN (7-18) mg/dL Creatinine (0.7-1.3) mg/dL Est Cr Clr Drug Dosing mL/min Estimated GFR (MDRD) (>60) mL/min BUN/Creatinine Ratio (14-18) Glucose (74-106) mg/dL POC Glucose 94 162 H 125 H (70-105) mg/dL Calcium (8.5-10.1) mg/dL 08/24/20 08/24/20 08/24/20 Range/Units 06:03 06:03 07:01 WBC 9.43 H (4.23-9.07) K/mm3 RBC 5.00 (4.63-6.08) M/mm3 Hgb 14.4 (13.7-17.5) gm/dl Hct 43.8 (40.1-51.0) % MCV 87.6 (79.0-92.2) fl MCH 28.8 (25.7-32.2) pg MCHC 32.9 (32.2-35.5) g/dl RDW Std Deviation 40.5 (35.1-43.9) fL Plt Count 397 H (163-337) K/mm3 MPV 10.4 (9.4-12.3) fl Neut % (Auto) 75.3 H (34.0-67.9) % Lymph % (Auto) 15.4 L (21.8-53.1) % Cobb % (Auto) 5.8 (5.3-12.2) % Eos % (Auto) 1.1 (0.8-7.0) Baso % (Auto) 0.2 (0.1-1.2) % Neut # (Auto) 7.10 H (1.78-5.38) K/mm3 Lymph # (Auto) 1.45 (1.32-3.57) K/mm3 Cobb # (Auto) 0.55 (0.30-0.82) K/mm3 Eos # (Auto) 0.10 (0.04-0.54) K/mm3 Baso # (Auto) 0.02 (0.01-0.08) K/mm3 Manual Slide Review Normal smear Sodium 139 (136-145) mEq/L Potassium 4.2 (3.5-5.1) mEq/L Chloride 103 (98-107) mEq/L Carbon Dioxide 25 (21-32) mEq/L Anion Gap 15.2 H (5-15) BUN 18 (7-18) mg/dL Creatinine 0.9 (0.7-1.3) mg/dL Est Cr Clr Drug Dosing 118.56 mL/min Estimated GFR (MDRD) > 60 (>60) mL/min BUN/Creatinine Ratio 20.0 H (14-18) Glucose 188 H (74-106) mg/dL POC Glucose 163 H (70-105) mg/dL Calcium 9.0 (8.5-10.1) mg/dL 08/24/20 Range/Units 11:44 WBC (4.23-9.07) K/mm3 RBC (4.63-6.08) M/mm3 Hgb (13.7-17.5) gm/dl Hct (40.1-51.0) % MCV (79.0-92.2) fl MCH (25.7-32.2) pg MCHC (32.2-35.5) g/dl RDW Std Deviation (35.1-43.9) fL Plt Count (163-337) K/mm3 MPV (9.4-12.3) fl Neut % (Auto) (34.0-67.9) % Lymph % (Auto) (21.8-53.1) % Cobb % (Auto) (5.3-12.2) % Eos % (Auto) (0.8-7.0) Baso % (Auto) (0.1-1.2) % Neut # (Auto) (1.78-5.38) K/mm3 Lymph # (Auto) (1.32-3.57) K/mm3 Cobb # (Auto) (0.30-0.82) K/mm3 Eos # (Auto) (0.04-0.54) K/mm3 Baso # (Auto) (0.01-0.08) K/mm3 Manual Slide Review Sodium (136-145) mEq/L Potassium (3.5-5.1) mEq/L Chloride (98-107) mEq/L Carbon Dioxide (21-32) mEq/L Anion Gap (5-15) BUN (7-18) mg/dL Creatinine (0.7-1.3) mg/dL Est Cr Clr Drug Dosing mL/min Estimated GFR (MDRD) (>60) mL/min BUN/Creatinine Ratio (14-18) Glucose (74-106) mg/dL POC Glucose 144 H (70-105) mg/dL Calcium (8.5-10.1) mg/dL DON Results - Last 24 hrs: Microbiology 08/19/20 22:52 Aerobic Blood Culture - Preliminary Blood - Venous - Lab Draw NO GROWTH AFTER 4 DAYS Anaerobic Blood Culture - Preliminary NO GROWTH AFTER 4 DAYS 08/19/20 22:45 Aerobic Blood Culture - Preliminary Blood - Venous NO GROWTH AFTER 4 DAYS Anaerobic Blood Culture - Preliminary NO GROWTH AFTER 4 DAYS Med Orders - Current: Current Medications Acetaminophen (Tylenol) 650 mg PO Q4H PRN PRN Reason: Pain (Mild 1-3)/fever Albuterol (Proventil Hfa) 0 gm INH Q4H PRN PRN Reason: Wheezing Clonazepam (Klonopin) 1 mg PO QPM [facility] Last Admin: 08/23/20 17:58 Dose: 1 mg Documented by: Clonazepam (Klonopin) 2 mg PO DAILY [facility] Last Admin: 08/24/20 08:55 Dose: 2 mg Documented by: Dexamethasone (Dexamethasone) 6 mg PO ONETIME ONE Stop: 08/24/20 12:01 Dexamethasone (Dexamethasone) 6 mg PO DAILY Stop: 08/27/20 23:59 Enoxaparin Sodium (Lovenox) 40 mg SUBCUT BID [facility] Last Admin: 08/24/20 08:46 Dose: 40 mg Documented by: Fish Oil (Fish Oil) 2 gm PO DAILY [facility] Last Admin: 08/24/20 08:55 Dose: 2 gm Documented by: Hydrocortisone (Hydrocortisone 1% Crm) 30 gm TOP Q6H PRN PRN Reason: Hives Last Admin: 08/20/20 17:59 Dose: 1 applic Documented by: Insulin Human Lispro (Humalog) 0 unit SUBCUT QIDACANDBED [facility]; Protocol Last Admin: 08/24/20 08:49 Dose: 1 units Documented by: Loratadine (Claritin) 10 mg PO DAILY [facility] Last Admin: 08/24/20 08:56 Dose: 10 mg Documented by: Multivitamins (Thera) 1 each PO DAILY [facility] Last Admin: 08/24/20 08:55 Dose: 1 each Documented by: Pantoprazole Sodium (Protonix) 40 mg PO DAILY [facility] Last Admin: 08/24/20 08:56 Dose: 40 mg Documented by: Discontinued Medications Dexamethasone (Dexamethasone) 6 mg PO Q24H [facility] Stop: 08/30/20 21:01 Dexamethasone (Dexamethasone) 6 mg PO Q24H [facility] Stop: 08/29/20 23:01 Last Admin: 08/23/20 22:00 Dose: 6 mg Documented by: Diphenhydramine HCl (Benadryl) 50 mg IVPUSH ONETIME ONE Stop: 08/20/20 16:31 Last Admin: 08/20/20 16:31 Dose: 50 mg Documented by: Diphenhydramine HCl (Benadryl) Confirm Administered Dose 50 mg .ROUTE .STK-MED ONE Stop: 08/20/20 16:29 Last Admin: 08/20/20 17:49 Dose: Not Given Documented by: Diphenhydramine HCl (Benadryl) 50 mg PO ONETIME ONE Stop: 08/20/20 22:35 Last Admin: 08/20/20 22:53 Dose: 50 mg Documented by: Famotidine (Pepcid) 20 mg PO ONETIME ONE Stop: 08/20/20 22:37 Last Admin: 08/20/20 22:53 Dose: 20 mg Documented by: Remdesivir 200 mg/ Sodium (Chloride) 250 mls @ 250 mls/hr IV ONETIME ONE Stop: 08/19/20 22:14 Last Admin: 08/20/20 01:34 Dose: Not Given Documented by: Sodium Chloride (Normal Saline) 250 mls @ 100 mls/hr IV ASDIRECTED [facility] Loratadine (Claritin) 10 mg PO ONETIME ONE Stop: 08/20/20 22:36 Last Admin: 08/20/20 22:53 Dose: 10 mg Documented by: - Exam Quality Assessment: Denies: Supplemental Oxygen, DVT Prophylaxis General: Reports: Alert, Oriented, Cooperative, No Acute Distress HEENT: Reports: Pupils Equal, Mucous Membr. Moist/[place] Neck: Reports: Supple, Trachea Midline. Denies: Lymphadenopathy Lungs: Reports: Decreased Breath Sounds, Wheezing (Fine expiratory wheeze noted on the left side) Cardiovascular: Reports: Regular Rate, Regular Rhythm, No Murmurs GI/Abdominal Exam: Normal Bowel Sounds, Soft, Non-Tender, No Distention (Male) Exam: Deferred Rectal (Males) Exam: Deferred Back Exam: Reports: Normal Inspection, Full Range of Motion Extremities: Normal Inspection, Normal Range of Motion, Non-Tender, No Pedal Edema, Normal Capillary Refill Skin: Reports: Warm, Dry, Intact Neurological: Reports: No New Focal Deficit Psy/Mental Status: Reports: Alert, Normal Affect, Normal Mood <Wilmar Diaz - Last Filed: 08/24/20 14:42> Discharge Summary - Referral to Home Health Primary Care Physician: RAEANN Sequeira - Discharge Diagnosis/Problem(s) (1) COVID-19 SNOMED Code(s): 892910673 ICD Code: U07.1 - COVID-19 Status: Acute Priority: High (2) Pneumonia due to COVID-19 virus SNOMED Code(s): 798455907883588328 ICD Code: U07.1 - COVID-19; J12.89 - OTHER VIRAL PNEUMONIA Status: Acute Priority: High - Patient Summary/Data Hospital Course: I have seen valuated the patient independently of Miguel Dugan, Nurse Practitioner, and have discussed the case with her. I have reviewed and agree with the orders placed by her. Please see orders. - Patient Data Vitals - Most Recent: Last Vital Signs Temp 36.4 C 08/24/20 11:47 Pulse 68 08/24/20 11:47 Resp 16 08/24/20 11:47 BP 122/66 08/24/20 11:47 Pulse Ox 96 08/24/20 11:47 I&O - Last 24 hours: Intake & Output 08/23/20 08/24/20 08/24/20 22:59 06:59 14:59 Intake Total 950 700 320 Balance 950 700 320 Lab Results - Last 24 hrs: Laboratory Results - last 24 hr 08/23/20 08/23/20 08/23/20 Range/Units 16:41 20:41 21:20 WBC (4.23-9.07) K/mm3 RBC (4.63-6.08) M/mm3 Hgb (13.7-17.5) gm/dl Hct (40.1-51.0) % MCV (79.0-92.2) fl MCH (25.7-32.2) pg MCHC (32.2-35.5) g/dl RDW Std Deviation (35.1-43.9) fL Plt Count (163-337) K/mm3 MPV (9.4-12.3) fl Neut % (Auto) (34.0-67.9) % Lymph % (Auto) (21.8-53.1) % Cobb % (Auto) (5.3-12.2) % Eos % (Auto) (0.8-7.0) Baso % (Auto) (0.1-1.2) % Neut # (Auto) (1.78-5.38) K/mm3 Lymph # (Auto) (1.32-3.57) K/mm3 Cobb # (Auto) (0.30-0.82) K/mm3 Eos # (Auto) (0.04-0.54) K/mm3 Baso # (Auto) (0.01-0.08) K/mm3 Manual Slide Review Sodium (136-145) mEq/L Potassium (3.5-5.1) mEq/L Chloride (98-107) mEq/L Carbon Dioxide (21-32) mEq/L Anion Gap (5-15) BUN (7-18) mg/dL Creatinine (0.7-1.3) mg/dL Est Cr Clr Drug Dosing mL/min Estimated GFR (MDRD) (>60) mL/min BUN/Creatinine Ratio (14-18) Glucose (74-106) mg/dL POC Glucose 94 162 H 125 H (70-105) mg/dL Calcium (8.5-10.1) mg/dL 08/24/20 08/24/20 08/24/20 Range/Units 06:03 06:03 07:01 WBC 9.43 H (4.23-9.07) K/mm3 RBC 5.00 (4.63-6.08) M/mm3 Hgb 14.4 (13.7-17.5) gm/dl Hct 43.8 (40.1-51.0) % MCV 87.6 (79.0-92.2) fl MCH 28.8 (25.7-32.2) pg MCHC 32.9 (32.2-35.5) g/dl RDW Std Deviation 40.5 (35.1-43.9) fL Plt Count 397 H (163-337) K/mm3 MPV 10.4 (9.4-12.3) fl Neut % (Auto) 75.3 H (34.0-67.9) % Lymph % (Auto) 15.4 L (21.8-53.1) % Cobb % (Auto) 5.8 (5.3-12.2) % Eos % (Auto) 1.1 (0.8-7.0) Baso % (Auto) 0.2 (0.1-1.2) % Neut # (Auto) 7.10 H (1.78-5.38) K/mm3 Lymph # (Auto) 1.45 (1.32-3.57) K/mm3 Cobb # (Auto) 0.55 (0.30-0.82) K/mm3 Eos # (Auto) 0.10 (0.04-0.54) K/mm3 Baso # (Auto) 0.02 (0.01-0.08) K/mm3 Manual Slide Review Normal smear Sodium 139 (136-145) mEq/L Potassium 4.2 (3.5-5.1) mEq/L Chloride 103 (98-107) mEq/L Carbon Dioxide 25 (21-32) mEq/L Anion Gap 15.2 H (5-15) BUN 18 (7-18) mg/dL Creatinine 0.9 (0.7-1.3) mg/dL Est Cr Clr Drug Dosing 118.56 mL/min Estimated GFR (MDRD) > 60 (>60) mL/min BUN/Creatinine Ratio 20.0 H (14-18) Glucose 188 H (74-106) mg/dL POC Glucose 163 H (70-105) mg/dL Calcium 9.0 (8.5-10.1) mg/dL 1012/20 Range/Units 11:44 WBC (4.23-9.07) K/mm3 RBC (4.63-6.08) M/mm3 Hgb (13.7-17.5) gm/dl Hct (40.1-51.0) % MCV (79.0-92.2) fl MCH (25.7-32.2) pg MCHC (32.2-35.5) g/dl RDW Std Deviation (35.1-43.9) fL Plt Count (163-337) K/mm3 MPV (9.4-12.3) fl Neut % (Auto) (34.0-67.9) % Lymph % (Auto) (21.8-53.1) % Cobb % (Auto) (5.3-12.2) % Eos % (Auto) (0.8-7.0) Baso % (Auto) (0.1-1.2) % Neut # (Auto) (1.78-5.38) K/mm3 Lymph # (Auto) (1.32-3.57) K/mm3 Cobb # (Auto) (0.30-0.82) K/mm3 Eos # (Auto) (0.04-0.54) K/mm3 Baso # (Auto) (0.01-0.08) K/mm3 Manual Slide Review Sodium (136-145) mEq/L Potassium (3.5-5.1) mEq/L Chloride (98-107) mEq/L Carbon Dioxide (21-32) mEq/L Anion Gap (5-15) BUN (7-18) mg/dL Creatinine (0.7-1.3) mg/dL Est Cr Clr Drug Dosing mL/min Estimated GFR (MDRD) (>60) mL/min BUN/Creatinine Ratio (14-18) Glucose (74-106) mg/dL POC Glucose 144 H (70-105) mg/dL Calcium (8.5-10.1) mg/dL DON Results - Last 24 hrs: Microbiology 08/19/20 22:52 Aerobic Blood Culture - Preliminary Blood - Venous - Lab Draw NO GROWTH AFTER 4 DAYS Anaerobic Blood Culture - Preliminary NO GROWTH AFTER 4 DAYS 08/19/20 22:45 Aerobic Blood Culture - Preliminary Blood - Venous NO GROWTH AFTER 4 DAYS Anaerobic Blood Culture - Preliminary NO GROWTH AFTER 4 DAYS Med Orders - Current: Current Medications Acetaminophen (Tylenol) 650 mg PO Q4H PRN PRN Reason: Pain (Mild 1-3)/fever Albuterol (Proventil Hfa) 0 gm INH Q4H PRN PRN Reason: Wheezing Clonazepam (Klonopin) 1 mg PO QPM [facility] Last Admin: 08/23/20 17:58 Dose: 1 mg Documented by: Clonazepam (Klonopin) 2 mg PO DAILY [facility] Last Admin: 08/24/20 08:55 Dose: 2 mg Documented by: Dexamethasone (Dexamethasone) 6 mg PO DAILY Stop: 08/27/20 23:59 Enoxaparin Sodium (Lovenox) 40 mg SUBCUT BID [facility] Last Admin: 08/24/20 08:46 Dose: 40 mg Documented by: Fish Oil (Fish Oil) 2 gm PO DAILY [facility] Last Admin: 08/24/20 08:55 Dose: 2 gm Documented by: Hydrocortisone (Hydrocortisone 1% Crm) 30 gm TOP Q6H PRN PRN Reason: Hives Last Admin: 08/20/20 17:59 Dose: 1 applic Documented by: Insulin Human Lispro (Humalog) 0 unit SUBCUT QIDACANDBED [facility]; Protocol Last Admin: 08/24/20 12:34 Dose: Not Given Documented by: Loratadine (Claritin) 10 mg PO DAILY [facility] Last Admin: 08/24/20 08:56 Dose: 10 mg Documented by: Multivitamins (Thera) 1 each PO DAILY [facility] Last Admin: 08/24/20 08:55 Dose: 1 each Documented by: Pantoprazole Sodium (Protonix) 40 mg PO DAILY [facility] Last Admin: 08/24/20 08:56 Dose: 40 mg Documented by: Discontinued Medications Dexamethasone (Dexamethasone) 6 mg PO Q24H [facility] Stop: 08/30/20 21:01 Dexamethasone (Dexamethasone) 6 mg PO Q24H [facility] Stop: 08/29/20 23:01 Last Admin: 08/23/20 22:00 Dose: 6 mg Documented by: Dexamethasone (Dexamethasone) 6 mg PO ONETIME ONE Stop: 08/24/20 12:01 Last Admin: 08/24/20 13:03 Dose: 6 mg Documented by: Diphenhydramine HCl (Benadryl) 50 mg IVPUSH ONETIME ONE Stop: 08/20/20 16:31 Last Admin: 08/20/20 16:31 Dose: 50 mg Documented by: Diphenhydramine HCl (Benadryl) Confirm Administered Dose 50 mg .ROUTE .STK-MED ONE Stop: 08/20/20 16:29 Last Admin: 08/20/20 17:49 Dose: Not Given Documented by: Diphenhydramine HCl (Benadryl) 50 mg PO ONETIME ONE Stop: 08/20/20 22:35 Last Admin: 08/20/20 22:53 Dose: 50 mg Documented by: Famotidine (Pepcid) 20 mg PO ONETIME ONE Stop: 08/20/20 22:37 Last Admin: 08/20/20 22:53 Dose: 20 mg Documented by: Remdesivir 200 mg/ Sodium (Chloride) 250 mls @ 250 mls/hr IV ONETIME ONE Stop: 08/19/20 22:14 Last Admin: 08/20/20 01:34 Dose: Not Given Documented by: Sodium Chloride (Normal Saline) 250 mls @ 100 mls/hr IV ASDIRECTED [facility] Loratadine (Claritin) 10 mg PO ONETIME ONE Stop: 08/20/20 22:36 Last Admin: 08/20/20 22:53 Dose: 10 mg Documented by:
[2020-08-24] MEDS ORDERED: Dexamethasone 4 MG Tab PO ONE (12:00)
[2020-08-24 12:12] VITALS: BP 122/66; PULSE 68
[2020-08-25] MEDS ORDERED: Dexamethasone 4 MG Tab PO SCH
== END 2020-08-24 14:15 | disposition home or self-care (01) | DRG 177 ==
LOC: JD.ED 21:34 → JD.MS 08-20 00:38 → OBSVTOIN 08-21 12:56
PROVIDERS: ADMIT Family Medicine; ATTEND Family Medicine
PROC: 8E0ZXY6 Isolation (ICD-10-PCS; 2020-08-19)
PROC: XW13325 Transfusion of Convalescent Plasma (Nonautologous) into Peripheral Vein, Percutaneous Approach, New Technology Group 5 (ICD-10-PCS; principal; 2020-08-21)
DX: U07.1 COVID-19 (principal); J12.89 Other viral pneumonia; J45.901 Unspecified asthma with (acute) exacerbation; Z68.41 Body mass index [BMI] 40.0-44.9, adult; T80.89XA Other complications following infusion, transfusion and therapeutic injection, initial encounter; E78.5 Hyperlipidemia, unspecified; E66.9 Obesity, unspecified; F41.9 Anxiety disorder, unspecified; T78.40XA Allergy, unspecified, initial encounter; H54.7 Unspecified visual loss; R73.03 Prediabetes; E78.00 Pure hypercholesterolemia, unspecified; K21.9 Gastro-esophageal reflux disease without esophagitis; G43.909 Migraine, unspecified, not intractable, without status migrainosus; Z79.84 Long term (current) use of oral hypoglycemic drugs; Z88.8 Allergy status to other drugs, medicaments and biological substances; Z91.040 Latex allergy status; Z91.013 Allergy to seafood; Z91.018 Allergy to other foods; Z87.891 Personal history of nicotine dependence
CPT/HCPCS: 36415; 36430; 36600; 71046; 80048; 80053; 82550; 82803; 82962; 83036; 83605; 83735; 83880; 84100; 84145; 84443; 84484; 85007; 85025; 85027; 85379; 85384; 85610; 85730; 86140; 86141; 86900; 86901; 87040; 87804; 93005; 93010; 94760; 96374; 99284; 99285-25; A9270-GY; J1200; J1650; J1815-GY; J8540; P9017

== ENCOUNTER 2022-05-23 17:33 | Emergency (ER) | payer BC, OTHER ==
[2022-05-23 18:51] VITALS: BP 155/83; PULSE 105
[2022-05-23] MEDS ORDERED: Ketorolac 60 MG/2 ML SDV IM ONE (18:59)
[2022-05-23] MEDS ORDERED: Tamsulosin 0.4 MG Cap.ER PO ONE (20:38)
== END 2022-05-23 21:32 | disposition home or self-care (01) ==
LOC: JD.ED 17:33
DX: N20.0 Calculus of kidney (principal); J45.909 Unspecified asthma, uncomplicated; K21.9 Gastro-esophageal reflux disease without esophagitis; F17.210 Nicotine dependence, cigarettes, uncomplicated; E66.9 Obesity, unspecified; Z68.42 Body mass index [BMI] 45.0-49.9, adult; Z88.8 Allergy status to other drugs, medicaments and biological substances; Z91.040 Latex allergy status; Z91.048 Other nonmedicinal substance allergy status; Z91.013 Allergy to seafood; Z91.018 Allergy to other foods; Z79.899 Other long term (current) drug therapy; Z79.84 Long term (current) use of oral hypoglycemic drugs; Z86.16 Personal history of COVID-19
CPT/HCPCS: 36415; 74176; 80053; 81001; 85025; 96372; 99284; A9270; J1885